=== PATIENT | female | born 1940 | race Caucasian/White ===

== ENCOUNTER 2017-04-13 07:22 | Inpatient (IN) ==
[2017-04-13] MEDS ORDERED: 0.9 % Sodium Chloride 1,000 ML IVC ONE (08:21)
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
[2017-04-13 08:49] LABS: Basophils # 0.1 K/mcL (0.0-0.2); Basophils % 0.8 %; Eosinophils # 0.4 K/mcL (0.0-0.6); Eosinophils % 3.1 %; Hematocrit 32.6 % (35.3-44.9); Hemoglobin 9.6 g/dL (11.5-15.4); Immature Granulocytes % 0.3 % (0-4); Lymphocytes # 1.9 K/mcL (0.6-4.6); Lymphocytes % 16.6 %; Mean Corpuscular HGB Conc 29.4 g/dL (31.6-35.5); Mean Corpuscular Volume 81.5 fL (83.0-100.0); Mean Platelet Volume 9.7 fL (9.4-12.4); Monocytes # 0.8 K/mcL (0.0-1.3); Monocytes % 7.1 %; Platelet Count 445 K/mcL (140-400); Red Cell Distribution Width 22.3 % (11.5-14.5); Segmented Neutrophils % 72.1 %
[2017-04-13 08:55] LABS: Bilirubin,Urine Negative (Negative); Blood,Urine Small (Negative); Clarity,Urine Clear (Clear); Color,Urine Yellow (Yellow); Glucose,Urine (UA) Normal (Normal); Ketones,Urine Negative (Negative); Leukocyte Esterase,Urine Trace (Negative); Nitrite,Urine Positive (Negative); PH,Urine 5.5 pH Units (5.0-8.0); Protein,Urine 30 mg/dL (Neg-Trace); Urobilinogen,Urine Normal (Normal)
[2017-04-13 09:04] LABS: Bacteria,Urine Many per hpf (None-Few); Hyaline Casts,Urine None Seen per lpf (None-Few); RBC,Urine 0-3 per hpf (0-3); Squamous Epithelial Cell,Urine Few per lpf (None-Few); WBC,Urine 0-3 per hpf (0-3)
[2017-04-13 09:05] LABS: Amphetamine Screen,Urine Negative ng/mL (Cutoff=1000); Barbiturate Screen,Urine Negative ng/mL (Cutoff=200); Benzodiazepines Screen,Urine Negative ng/mL (Cutoff=200); Cannabinoid Screen,Urine Negative ng/mL (Cutoff = 50); Cocaine Screen,Urine Negative ng/mL (Cutoff= 300); Opiate Screen,Urine Negative ng/mL (Cutoff=300); Phencyclidine Screen,Urine Negative ng/mL (Cutoff=25)
[2017-04-13] MEDS ORDERED: *HR* LORazepam 2 MG/ML VIAL IVP ONE ×2 (09:21→10:58)
[2017-04-13] MEDS ORDERED: Ipratropium/Albuterol Neb 3 ML IH ONE (09:38)
[2017-04-13] MEDS: Nitroglycerin 0.4 MG TAB.SUBL SL STA ×2 (09:44→09:55)
[2017-04-13] MEDS ORDERED: Nitroglycerin 25 MG/250 ML INFUS..BTL IVC SCH (10:00)
[2017-04-13 10:21] LABS: Alanine Aminotransferase 25 Units/L (0-55); Albumin 3.2 g/dL (3.5-5.0); Albumin/Globulin Ratio 0.9 (1.1-2.2); Alkaline Phosphatase 81 Units/L (38-126); Aspartate Amino Transferase 27 Units/L (5-34); BUN/Creatinine Ratio 25 (6-26); Bilirubin,Total 0.3 mg/dL (0.2-1.2); Blood Urea Nitrogen 23 mg/dL (7-20); Calcium 8.7 mg/dL (8.6-10.8); Carbon Dioxide 18 mEq/L (19-29); Chloride 111 mEq/L (98-109); Globulin 3.7 g/dL (2.4-3.5); Glucose 112 mg/dL (70-99); Lipase 37 Units/L (8-78); Osmolality,Calculated 294 (280-300); Potassium 3.8 mEq/L (3.5-4.5); Sodium 140 mEq/L (136-145); Total Protein 6.9 g/dL (6.0-8.3); eGFR For African Americans > 60 (> 60); eGFR For Non-African Americans 59 (> 60)
[2017-04-13] MEDS ORDERED: Furosemide 40 MG/4 ML VIAL IVP ONE (12:08)
[2017-04-13] MEDS ORDERED: Naloxone 0.4 MG/ML INJ IVP PRN (12:37)
[2017-04-13] MEDS ORDERED: Ondansetron ODT 4 MG TAB.RAPDIS SL PRN (12:37)
[2017-04-13] MEDS ORDERED: Acetaminophen 325 MG TABLET PO PRN (12:37)
--- NOTE | 2017-04-13 12:48 | Internal Med History&Physical ---
Date of Encounter: 04/13/17 Time of Encounter: 12:50 Assessment and Plan (1) Altered mental status Current visit: Yes Status: Acute Patient brought to the emergency room by friend who noted increased confusion over the last several days. Patient unable to answer questions appropriately on my assessment. CT of the head negative for any acute intracranial abnormality. Patient's UA consistent with infection, and may be source of confusion. Will treat UTI, and monitor for improvement in mental status. Qualifiers: Altered mental status type: disorientation Qualified Code(s): R41.0 - Disorientation, unspecified (2) Urinary tract infection Current visit: Yes Status: Acute With confusion. UA with positive leuks and nitrites consistent with infection. Mildly elevated white blood cell count at 11.2. Patient given IV Rocephin by the emergency department. We will add Levaquin. Qualifiers: Urinary tract infection type: acute cystitis Hematuria presence: without hematuria Qualified Code(s): N30.00 - Acute cystitis without hematuria (3) Congestive heart failure Current visit: Yes Status: Acute Patient with no known medical history. She takes no medications. She is a lifelong smoker and smokes 2 packs a day. She presented to the emergency department was confusion was given a liter of fluid bolus. Had acute respiratory distress and was found to have flash pulmonary edema. Chest x-ray showed suspected mild interstitial pulmonary edema, BNP was elevated at 685. She was given BiPAP, nitro drip, and 40 mg IV push Lasix with improvement in her respiratory status. We will trend troponins, get an echocardiogram. Continue nitro drip and BiPAP. Lasix 20 mg IV push twice a day. We will consult cardiology for new onset CHF. Qualifiers: Congestive heart failure type: unspecified congestive heart failure type Congestive heart failure chronicity: acute Qualified Code(s): I50.9 - Heart failure, unspecified (4) Smoker Current visit: Yes Status: Acute Patient reportedly smokes 2 packs per day. Unable to discuss smoking cessation with patient due to mental status. Routine patch ordered smoking cessation education ordered. (5) Tachycardia Current visit: Yes Status: Acute Patient with tachycardia. May be related to sepsis from UTI, but concern for PE given intermittent complaints of chest pain and shortness of breath. Elevated D-dimer of 674. Will get CTA of chest. (6) Abdominal pain Current visit: Yes Status: Acute Patient with intermittent complaints of abdominal pain. She is confused and unable to answer questions appropriately. She has visible flinch with palpation of abdomen, and abdomen is mildly distended. Will get CT of Abd/ Pelvis with IV and oral contrast. Qualifiers: Abdominal location: generalized Qualified Code(s): R10.84 - Generalized abdominal pain (7) DVT prophylaxis Current visit: Yes Status: Acute Antiembolic stockings lovenox 40mg SQ daily. Internal Medicine - H&P: HPI Chief complaint: confusion Admitted From: Emergency Dept Plans for Post Hospital Care: Home History of present illness: Ms. Wellington is a 76 year old female with no known past medical history was brought to the emergency room by her friend for increased confusion. During her time in the emergency room she intermittently complained of chest pain and abdominal pain. I was unable to obtain a review of systems due to patient's confusion as she was not answering questions appropriately. Her friend reports she was not complaining of any pain or burning with urination he does not know if she was having regular bowel movements, he does report that she was not eating much. Evaluation in the emergency department revealed a UTI consistent with infection elevated BUN. Is given a liter of fluid, and had acute respiratory distress, and flash CHF, she was started on a nitro drip and BiPAP. Her BNP was found to be 685, although there is no baseline available for comparison. She is given 40 mg of Lasix IV. Head CT showed no acute intracranial abnormality. Chest x-ray showed suspected mild interstitial pulmonary edema troponin was negative at 0.03. She had a mildly elevated white blood cell count 11.2. She was tachycardic and hypertensive initially in the emergency department. Blood pressure has come down with a nitro drip. On exam , patient is confused, satting 98% on the BiPAP, still tachypneic. She does have some mild tenderness to palpation of her abdomen. Heart is regular rate and rhythm. Past Med Surg Social Fam HX - Past Medical History Medical history: no medical history, non-contributory Psychiatric history: anxiety, depression - Social History Smoking Status: Current every day smoker (2PPD) Packs per day: 2 Smokeless Tobacco Status: No Alcohol use: rarely Drug use: none Internal Medicine - H&P: Meds No Known Home Drugs 04/13/17 [History] Allergies No Known Allergies Allergy (Verified 04/13/17 07:35) ROS unobtainable: due to mental status All Systems PM: A 10-system review of systems was performed and is negative for pertinent findings except as documented above in the HPI. - Constitutional Vitals: Temp Pulse Resp BP Pulse Ox 98.8 F 95 26 120/79 97 04/13/17 07:24 04/13/17 12:31 04/13/17 12:31 04/13/17 12:31 04/13/17 12:31 General appearance: Present: underweight. Absent: answers questions appropriately - Head Head exam: Present: atraumatic, normocephalic - Eye Eye exam: Present: PERRL, conjuntiva pink, sclera anicteric Pupils: Present: PERRL - Neck Neck exam general surgery: Present: supple, trachea midline. Absent: lymphadenopathy - Respiratory Respiratory exam: Present: rales (in bases). Absent: accessory muscle use, rhonchi, wheezes - Cardiovascular Cardiovascular exam: Present: RRR, +S1, +S2. Absent: diastolic murmur, gallop, rubs, systolic murmur - GI/Abdominal GI/Abdominal exam: Present: normal bowel sounds, soft, tenderness, no peritoneal signs. Absent: distended - Extremities Exam Extremities exam: Present: warm, radial pulses palpable and symetrical. Absent : calf tenderness, cyanotic, pedal edema - Neurological Exam Neurological exam: Present: CN II-XII intact, no focal deficits. Absent: facial droop, speech deficit - Skin Skin exam: Present: dry, intact Internal Med - H&P Results - Labs CBC & Chem 7: 04/13/17 08:36 04/13/17 08:36 Labs: All Lab Results (24 Hours) 04/13/17 04/13/17 04/13/17 Range/Units 07:57 08:10 08:36 WBC 11.2 H (4.3-11.1) K/mcL RBC 4.00 (3.82-4.97) M/mcL Hgb 9.6 L (11.5-15.4) g/dL Hct 32.6 L (35.3-44.9) % MCV 81.5 L (83.0-100.0) fL MCH 24.0 L (28.0-33.3) pg MCHC 29.4 L (31.6-35.5) g/dL RDW 22.3 H (11.5-14.5) % Plt Count 445 H (140-400) K/mcL MPV 9.7 (9.4-12.4) fL Immature Gran % 0.3 (0-4) % Seg Neutrophils % 72.1 % Lymphocytes % 16.6 % Monocytes % 7.1 % Eosinophils % 3.1 % Basophils % 0.8 % Neutrophils # 8.0 (1.6-8.9) K/mcL Lymphocytes # 1.9 (0.6-4.6) K/mcL Monocytes # 0.8 (0.0-1.3) K/mcL Eosinophils # 0.4 (0.0-0.6) K/mcL Basophils # 0.1 (0.0-0.2) K/mcL D-Dimer (0-500) ng/mLFEU Sodium (136-145) mEq/L Potassium (3.5-4.5) mEq/L Chloride (98-109) mEq/L Carbon Dioxide (19-29) mEq/L BUN (7-20) mg/dL Creatinine (0.57-1.11) mg/dL Est GFR ( Amer) (> 60) Est GFR (Non-Af Amer) (> 60) BUN/Creatinine Ratio (6-26) Glucose (70-99) mg/dL POC Glucose 116 H (58-89) Calculated Osmolality (280-300) Lactic Acid (0.5-2.2) mmol/L Calcium (8.6-10.8) mg/dL Total Bilirubin (0.2-1.2) mg/dL AST (5-34) Units/L ALT (0-55) Units/L Alkaline Phosphatase (38-126) Units/L Troponin I (0-0.03) ng/mL B-Natriuretic Peptide (0-100) pg/mL Serum Total Protein (6.0-8.3) g/dL Albumin (3.5-5.0) g/dL Globulin (2.4-3.5) g/dL Albumin/Globulin Ratio (1.1-2.2) Lipase (8-78) Units/L Urine Color (Yellow) Urine Clarity (Clear) Urine pH (5.0-8.0) pH Units Ur Specific Sherman (1.010-1.025) Urine Protein (Neg-Trace) mg/dL Urine Glucose (UA) (Normal) mg/dL Urine Ketones (Negative) mg/dL Urine Blood (Negative) Urine Nitrite (Negative) Urine Bilirubin (Negative) Urine Urobilinogen (Normal) mg/dL Ur Leukocyte Esterase (Negative) Urine Microscopic RBC (0-3) per hpf Urine Microscopic WBC (0-3) per hpf Ur Squamous Epith Cells (None-Few) per lpf Urine Bacteria (None-Few) per hpf Hyaline Casts (None-Few) per lpf Ur Culture Indicated? (NO) Urine Opiates Screen Negative (Zxfoci=934) ng/mL Ur Barbiturates Screen Negative (Lrcbqb=706) ng/mL Ur Phencyclidine Scrn Negative (Cutoff=25) ng/mL Ur Amphetamines Screen Negative (Cgrfjf=6868) ng/mL U Benzodiazepines Scrn Negative (Ntzjyp=263) ng/mL Urine Cocaine Screen Negative (Cutoff= 300) ng/mL U Marijuana (THC) Screen Negative (Cutoff = 50) ng/mL 04/13/17 04/13/17 04/13/17 Range/Units 08:36 08:36 08:36 WBC (4.3-11.1) K/mcL RBC (3.82-4.97) M/mcL Hgb (11.5-15.4) g/dL Hct (35.3-44.9) % MCV (83.0-100.0) fL MCH (28.0-33.3) pg MCHC (31.6-35.5) g/dL RDW (11.5-14.5) % Plt Count (140-400) K/mcL MPV (9.4-12.4) fL Immature Gran % (0-4) % Seg Neutrophils % % Lymphocytes % % Monocytes % % Eosinophils % % Basophils % % Neutrophils # (1.6-8.9) K/mcL Lymphocytes # (0.6-4.6) K/mcL Monocytes # (0.0-1.3) K/mcL Eosinophils # (0.0-0.6) K/mcL Basophils # (0.0-0.2) K/mcL D-Dimer 674 H (0-500) ng/mLFEU Sodium 140 (136-145) mEq/L Potassium 3.8 (3.5-4.5) mEq/L Chloride 111 H (98-109) mEq/L Carbon Dioxide 18 L (19-29) mEq/L BUN 23 H (7-20) mg/dL Creatinine 0.92 (0.57-1.11) mg/dL Est GFR ( Amer) > 60 (> 60) Est GFR (Non-Af Amer) 59 L (> 60) BUN/Creatinine Ratio 25 (6-26) Glucose 112 H (70-99) mg/dL POC Glucose (58-89) Calculated Osmolality 294 (280-300) Lactic Acid (0.5-2.2) mmol/L Calcium 8.7 (8.6-10.8) mg/dL Total Bilirubin 0.3 (0.2-1.2) mg/dL AST 27 (5-34) Units/L ALT 25 (0-55) Units/L Alkaline Phosphatase 81 (38-126) Units/L Troponin I 0.03 (0-0.03) ng/mL B-Natriuretic Peptide (0-100) pg/mL Serum Total Protein 6.9 (6.0-8.3) g/dL Albumin 3.2 L (3.5-5.0) g/dL Globulin 3.7 H (2.4-3.5) g/dL Albumin/Globulin Ratio 0.9 L (1.1-2.2) Lipase 37 (8-78) Units/L Urine Color (Yellow) Urine Clarity (Clear) Urine pH (5.0-8.0) pH Units Ur Specific Sherman (1.010-1.025) Urine Protein (Neg-Trace) mg/dL Urine Glucose (UA) (Normal) mg/dL Urine Ketones (Negative) mg/dL Urine Blood (Negative) Urine Nitrite (Negative) Urine Bilirubin (Negative) Urine Urobilinogen (Normal) mg/dL Ur Leukocyte Esterase (Negative) Urine Microscopic RBC (0-3) per hpf Urine Microscopic WBC (0-3) per hpf Ur Squamous Epith Cells (None-Few) per lpf Urine Bacteria (None-Few) per hpf Hyaline Casts (None-Few) per lpf Ur Culture Indicated? (NO) Urine Opiates Screen (Yhaesa=223) ng/mL Ur Barbiturates Screen (Lvuoad=857) ng/mL Ur Phencyclidine Scrn (Cutoff=25) ng/mL Ur Amphetamines Screen (Lvjfao=7700) ng/mL U Benzodiazepines Scrn (Vnrksc=780) ng/mL Urine Cocaine Screen (Cutoff= 300) ng/mL U Marijuana (THC) Screen (Cutoff = 50) ng/mL 04/13/17 04/13/17 04/13/17 Range/Units 08:36 08:45 12:09 WBC (4.3-11.1) K/mcL RBC (3.82-4.97) M/mcL Hgb (11.5-15.4) g/dL Hct (35.3-44.9) % MCV (83.0-100.0) fL MCH (28.0-33.3) pg MCHC (31.6-35.5) g/dL RDW (11.5-14.5) % Plt Count (140-400) K/mcL MPV (9.4-12.4) fL Immature Gran % (0-4) % Seg Neutrophils % % Lymphocytes % % Monocytes % % Eosinophils % % Basophils % % Neutrophils # (1.6-8.9) K/mcL Lymphocytes # (0.6-4.6) K/mcL Monocytes # (0.0-1.3) K/mcL Eosinophils # (0.0-0.6) K/mcL Basophils # (0.0-0.2) K/mcL D-Dimer (0-500) ng/mLFEU Sodium (136-145) mEq/L Potassium (3.5-4.5) mEq/L Chloride (98-109) mEq/L Carbon Dioxide (19-29) mEq/L BUN (7-20) mg/dL Creatinine (0.57-1.11) mg/dL Est GFR ( Amer) (> 60) Est GFR (Non-Af Amer) (> 60) BUN/Creatinine Ratio (6-26) Glucose (70-99) mg/dL POC Glucose (58-89) Calculated Osmolality (280-300) Lactic Acid 1.0 (0.5-2.2) mmol/L Calcium (8.6-10.8) mg/dL Total Bilirubin (0.2-1.2) mg/dL AST (5-34) Units/L ALT (0-55) Units/L Alkaline Phosphatase (38-126) Units/L Troponin I (0-0.03) ng/mL B-Natriuretic Peptide 685 H (0-100) pg/mL Serum Total Protein (6.0-8.3) g/dL Albumin (3.5-5.0) g/dL Globulin (2.4-3.5) g/dL Albumin/Globulin Ratio (1.1-2.2) Lipase (8-78) Units/L Urine Color Yellow (Yellow) Urine Clarity Clear (Clear) Urine pH 5.5 (5.0-8.0) pH Units Ur Specific Sherman 1.020 (1.010-1.025) Urine Protein 30 H (Neg-Trace) mg/dL Urine Glucose (UA) Normal (Normal) mg/dL Urine Ketones Negative (Negative) mg/dL Urine Blood Small H (Negative) Urine Nitrite Positive A (Negative) Urine Bilirubin Negative (Negative) Urine Urobilinogen Normal (Normal) mg/dL Ur Leukocyte Esterase Trace H (Negative) Urine Microscopic RBC 0-3 (0-3) per hpf Urine Microscopic WBC 0-3 (0-3) per hpf Ur Squamous Epith Cells Few (None-Few) per lpf Urine Bacteria Many H (None-Few) per hpf Hyaline Casts None Seen (None-Few) per lpf Ur Culture Indicated? YES A (NO) Urine Opiates Screen (Bmfjrm=238) ng/mL Ur Barbiturates Screen (Vlqqeh=354) ng/mL Ur Phencyclidine Scrn (Cutoff=25) ng/mL Ur Amphetamines Screen (Dmrcrn=3114) ng/mL U Benzodiazepines Scrn (Idktvw=312) ng/mL Urine Cocaine Screen (Cutoff= 300) ng/mL U Marijuana (THC) Screen (Cutoff = 50) ng/mL - Diagnostic Studies Chest x-ray Additional comments: Chest X-Ray 04/13/17 08:21 IMPRESSION: Suspected mild interstitial pulmonary edema. D/ /13/2017 08:47:39 Dustin Antony MD / bcartally Interpreting Provider: Dustin Antony MD CT scan - head Additional comments: Head CT 04/13/17 08:21 IMPRESSION: No acute intracranial abnormality. Mild parenchymal volume loss. Mild chronic microvascular disease. D/ / Luis Greene MD / Luis Greene MD Interpreting Provider: Luis Greene MD
[2017-04-13] MEDS ORDERED: Levofloxacin 750 MG/150 ML 750 MG/150 ML BAG IVPB SCH (13:00)
[2017-04-13 13:50] LABS: ABG Base Excess -1.6 mEq/L (-2.0 to 3.0); ABG HCO3 22.8 mEQ/L (21-27); ABG Oxygen Saturation 98 % (95-98); ABG PCO2 36 mmHg (35-45); ABG PH 7.41 pH Units (7.32-7.45); ABG PO2 107 mmHg (85-104); ABG TCO2 23.9 mEq/L (20-26)
[2017-04-13 13:51] LABS: Blood Gas FiO2 35 %
[2017-04-13] MEDS: Nicotine 21 MG PATCH.TD24 TD SCH (14:00)
--- NOTE | 2017-04-13 14:17 | Event Note ---
Date of Encounter: 04/13/17 Time of Encounter: 14:13 Patient seen and examined with nurse practitioner. Patient presented to the emergency room with confusion. Suspected toxic metabolic encephalopathy. It is theology not very clear questionable UTI and she will be started on Levaquin for that. She is also a lifelong smoker and has some yellowish sputum production but no evidence of pneumonia on chest x-ray. Widen the ER patient went into flash pulmonary edema after 1 L bolus of normal saline was given. She was placed on BiPAP and IV nitroglycerin and 40 mg IV Lasix were given. Patient remains confused during my interview. Suspected underlying sepsis. abdomen slightly distended and tender. We will get CT scan of the abdomen with oral and IV contrast to look for intra-abdominal pathology. D Darrick also elevated and we will simultaneously scan the chest to rule out PE. EEG would be performed. CT scan of the head did not show any intracranial bleed. She denies any neck pain. Her neck is supple, negative Kernig's and Br[place] sign. During my interview BP was 90/60. Discontinued nitroglycerin. Avoid BP drops. Prognosis guarded
--- NOTE | 2017-04-13 15:44 | Cardiology Consult Note ---
Date of Encounter: 04/13/17 Time of Encounter: 15:40 Assessment and Plan (1) Pulmonary edema Current Visit: Yes Status: Acute Patient developed pulmonary edema after IV fluid bolus. Denies history of CAD or CHF. BNP 685. Check echocardiogram. Qualifiers: Chronicity: acute Qualified Code(s): J81.0 - Acute pulmonary edema (2) Elevated troponin Current Visit: Yes Status: Acute Mild troponin elevation at 0.07. Likely demand ischemia in the setting of pulmonary edema. Continue to trend. Check TTE. Confused but reported chest pain 1-2 days ago. Denies chest pain at this time. Consider Stress test vs C once stable. Risk factors of CAD: heavy smoking and family history. (3) Carotid artery disease Current Visit: Yes Status: Acute CUS in 2012 showed 60-79% stenosis in 2012. Smoking cessation. Pt currently confused, unable to discuss. Qualifiers: Laterality: right Qualified Code(s): I77.9 - Disorder of arteries and arterioles, unspecified Discussion w patient/family: The assessment and plan as outlined above was discussed with the patient and/or family members who expressed understanding and agreement. All questions were answered. Thank you for involving us in the care of your patient. Please call with any questions. History of Present Illness Consult date: 04/13/17 Requesting physician: Wilfred Hancock Consult reason: CHF Chief complaint: Confusion History of present illness: Ms. Wellington is a 76 year old female who presented from home with confusion. WHile being treated with IV fluid in the ER she developed flash pulmonary edema and required IV lasix, NTG gtt, and bipap. CXR showed mild interstitial edema likely pulmonary edema. Cardiology consulted for possible CHF and mild troponin elevation at 0.07. BNP 685. No previous history of CAD or CHF. No previous cardiac work-up. On my exam she remains confused and has trouble answering questions. She does c/o chest pain prior to admission and increasing SOB with exertion. She c/o congestion in her nose. She has a history of COPD, heavy tobacco use, and carotid artery disease. Past Med Surg Social Fam HX - Past Medical History Medical history: COPD, other (carotid artery disease) Psychiatric history: anxiety, depression - Social History Smoking Status: Current every day smoker (2PPD) Packs per day: 2 Smokeless Tobacco Status: No Alcohol use: rarely Drug use: none Medications and Allergies No Known Home Drugs 05/18/17 [History] Allergies No Known Allergies Allergy (Verified 04/13/17 07:35) All Systems Review: A 10-system review of systems was performed and is negative for pertinent findings except as documented above in the HPI. Physical Examination Vital Signs, Last 4 Hours Temp Pulse Resp BP Pulse Ox 04/13/17 13:10 98.4 F 87 14 105/67 93 General: Other (mumbles, MENTASTA, confused.) HEENT: Atraumatic, Normocephaly, Mucus Membranes Moist Neck: No JVD, Normal carotid pulses Cardiac: Reg Rate and Rhythm, Normal S1 and S2, No Murmur Lungs: Other (Expiratory wheezes scattered throughout. ) Neuro: Alert and responsive, No focal deficits noted Abdomen: Soft, Non-Tender Skin: No rashes noted on visualized skin Musculoskeletal: No Chest Wall Tenderness Extremities: No Clubbing, No Cyanosis, No Edema, Normal Pulses Results 04/13/17 08:36 04/13/17 08:36 Lab Results 04/13/17 04/13/17 14:00 14:00 Magnesium 1.9 Troponin I 0.07 H* - Imaging and Cardiology Echo: pending - EKG Interpretation EKG results cardiology: personally reviewed (ST, no acute ST changes.) Consult Discharge Plan - Plan Referrals: NO,PCP [Primary Care Provider] -
--- NOTE | 2017-04-13 19:02 | Event Note ---
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 Patient is NPO. Consult to surgery ordered, spoke with Dr. Spear, he will see patient in the morning. Consult to GI ordered as well.
[2017-04-13] MEDS: Furosemide 20 MG/2 ML VIAL IVP SCH (22:03)
[2017-04-14] MEDS: MetroNIDAZOLE 500 MG/100 ML 500 MG/100 ML BAG IVPB SCH ×2 (01:04→10:56)
[2017-04-14 05:58] LABS: Basophils # 0.1 K/mcL (0.0-0.2); Basophils % 0.9 %; Eosinophils # 0.3 K/mcL (0.0-0.6); Eosinophils % 2.7 %; Hematocrit 32.6 % (35.3-44.9); Hemoglobin 9.9 g/dL (11.5-15.4); Immature Granulocytes % 0.3 % (0-4); Lymphocytes # 2.2 K/mcL (0.6-4.6); Lymphocytes % 23.2 %; Mean Corpuscular HGB Conc 30.4 g/dL (31.6-35.5); Mean Corpuscular Hemoglobin 24.8 pg (28.0-33.3); Mean Corpuscular Volume 81.5 fL (83.0-100.0); Mean Platelet Volume 10.1 fL (9.4-12.4); Monocytes # 1.1 K/mcL (0.0-1.3); Monocytes % 11.5 %; Neutrophils # 5.8 K/mcL (1.6-8.9); Platelet Count 434 K/mcL (140-400); Red Cell Distribution Width 21.8 % (11.5-14.5); Segmented Neutrophils % 61.4 %
[2017-04-14] MEDS ORDERED: *HR* Enoxaparin 40 MG/0.4 ML SYRINGE SQ SCH (06:00)
[2017-04-14 06:06] LABS: Calcium 9.1 mg/dL (8.6-10.8); Chol/HDL Ratio 4.7 (0-4.9); Potassium 3.9 mEq/L (3.5-4.5)
--- NOTE | 2017-04-14 08:54 | Electrocardiograph Report ---
[place] [id number] Test Date: 2017-04-13 Pat Name: Dennise Wellington Department: 105 Room: [id number] Gender: F Log Scaler: KARLA : 1940 Requested By: Ailin Leahy Order Number: [id number] Reading MD: Enrico Bush MD Measurements Intervals [place] Rate: 110 P: 59 [place]: 176 QRS: 3 QRSD: 82 T: 77 QT: 341 QTc: 406 Interpretive Statements SINUS TACHYCARDIA LEFT ATRIAL ENLARGEMENT Electronically Signed On 04-14-2017 8:52:43 EDT by Enrico Bush MD
--- NOTE | 2017-04-14 10:22 | Internal Med Progress Note ---
<Jacqueline Marques - Last Filed: 04/14/17 14:46> Date of Encounter: 04/14/17 Time of Encounter: 09:15 - Assessment and plan (1) Acute systolic CHF (congestive heart failure) Current Visit: Yes Status: Acute Assessment and plan: - Patient developed flash pulmonary edema in ED after 1L of IV NS bolus. Respiratory status improves after IV Lasix. - Echo on 04/14/17 found LVEF 25% with severe global LV systolic dysfunction and mild diastolic dysfunction. - Cardiology recommends LHC to rule out ischemic cause. LHC consent was obtained on the phone from patient's incarcerated son. Plan to have LHC later today. - Patient appears to be dry at this time. Will discontinue IV Lasix. - Continue to monitor with strict I&O and daily weight. (2) Cecum mass Current Visit: Yes Status: Acute Assessment and plan: - CT A/P found a partially circumferential cecal mass measuring 3.1 x 3.4 x 3.7 cm, likely a primary colon cancer. - Per Dr. Spear, patient will likely need right hemicolectomy as it can potentially cause obstruction but that surgery will be after patient's other current medical problems (systolic CHF and UTI) are taken care of. (3) Urinary tract infection Current Visit: Yes Status: Acute Assessment and plan: - Urine culture preliminarily grew GNR, further identification and sensitivity pending. - May partially contribute to her current confusion. - Improves as WBC decreased from 11.2 to 9.5. - Continue IV levofloxacin. Qualifiers: Urinary tract infection type: acute cystitis Hematuria presence: without hematuria Qualified Code(s): N30.00 - Acute cystitis without hematuria (4) Elevated troponin Current Visit: Yes Status: Acute Assessment and plan: - Elevated troponin (0.03, 0.07, 0.06). - Likely demand ischemia in the setting of acute CHF per cardiology. - Cardiology plans to have LHC today. (5) Poor short term memory Current Visit: Yes Status: Acute Assessment and plan: - Patient seems to have difficulty to register and recognize topics discussed with her as she will repeat exactly same problems again and again during conversation. (6) Tobacco abuse Current Visit: Yes Status: Acute Assessment and plan: - Patient is instructed not to smoke in hospital. - Continue nicotine patch. - Subjective Interval history: Patient was caught smoking in the room this morning. Patient was seen and examined this morning. Patient reports breathing much better compared to yesterday and states she has no pain and wonders if she can go home. Patient denies fever, chills, nausea, vomiting, diarrhea, abdominal pain, difficulty urinating, dysuria or hematuria. - Constitutional Vitals: Temp Pulse Resp BP Pulse Ox 98.2 F 105 16 130/81 96 04/14/17 07:56 04/14/17 07:56 04/14/17 07:56 04/14/17 07:56 04/14/17 07:56 General appearance: Present: A&O X 2 (Person and place, patient first says it's 2016. ), no acute distress, underweight. Absent: answers questions appropriately - Head Head exam: Present: atraumatic, normocephalic - Eye Eye exam: Present: EOMI, PERRL, conjuntiva pink, sclera anicteric - Neck Neck exam general surgery: Present: supple, trachea midline. Absent: lymphadenopathy - Respiratory Respiratory exam: Present: CTAB. Absent: accessory muscle use, rales, rhonchi, wheezes - Cardiovascular Cardiovascular exam: Present: +S1, +S2, tachycardia. Absent: diastolic murmur, gallop, rubs, systolic murmur - GI/Abdominal GI/Abdominal exam: Present: normal bowel sounds, soft, no peritoneal signs. Absent: distended, tenderness - Extremities Exam Extremities exam: Present: warm, radial pulses palpable and symetrical. Absent : calf tenderness, cyanotic, pedal edema - Neurological Exam Neurological exam: Present: CN II-XII intact, no focal deficits. Absent: pronater drift, facial droop, speech deficit - Skin Skin exam: Present: dry, intact, warm Internal Medicine: Result - Labs CBC & Chem 7: 04/14/17 05:18 04/14/17 05:18 Labs: Short CBC 04/14/17 Range/Units 05:18 WBC 9.5 (4.3-11.1) K/mcL Hgb 9.9 L (11.5-15.4) g/dL Hct 32.6 L (35.3-44.9) % Plt Count 434 H (140-400) K/mcL Neutrophils # 5.8 (1.6-8.9) K/mcL BMP 04/14/17 05:18 Sodium 141 Potassium 3.9 Chloride 104 Carbon Dioxide 26 BUN 20 Creatinine 1.16 H Glucose 78 Calcium 9.1 Cardiac Enzymes 04/13/17 04/13/17 Range/Units 14:00 21:58 Troponin I 0.07 H* 0.06 H* (0-0.03) ng/mL - ABG Interpretation ABG results: ABG ABG pH 7.41 pH Units (7.32-7.45) 04/13/17 13:40 ABG pCO2 36 mmHg (35-45) 04/13/17 13:40 ABG pO2 107 mmHg (85-104) H 04/13/17 13:40 ABG O2 Saturation 98 % (95-98) 04/13/17 13:40 PT/INR, D-dimer D-Dimer 674 ng/mLFEU (0-500) H 04/13/17 08:36 - Impressions Impressions Abdomen/Pelvis CT 04/13/17 16:30 IMPRESSION: No pulmonary emboli. There is a partially circumferential cecal mass measuring 3.1 x 3.4 x 3.7 cm felt likely to represent a primary colon cancer. This could be assessed with colonoscopy. This is causing a partial obstruction with distention of the cecum, and mild probable pericolonic edema or less likely inflammatory stranding adjacent to the mass. Bilateral adrenal nodules, unable to be characterized based on this single contrast enhanced study. Given the presence of a colonic mass, a consideration would be metastatic disease. However they are somewhat low in density, and may also represent benign adenomas. Further evaluation with MR or CT adrenal gland protocol imaging or possible PET imaging studies may be beneficial for the purposes of staging. Cardiomegaly, with small bilateral pleural effusions, as well as findings suspicious for mild pulmonary edema. There is a small hypodense lesion identified within the liver measuring 6 Hounsfield units and 7 mm. This likely represents a small cyst, and is felt less likely to represent metastatic disease. Diffuse osseous demineralization, with multilevel degenerative changes seen throughout the spine as well as within the sacroiliac joints. D/ / Dustin Yousif MD / Dustin Yousif MD Interpreting Provider: Dustin Yousif MD Chest CTA 04/13/17 16:30 IMPRESSION: No pulmonary emboli. There is a partially circumferential cecal mass measuring 3.1 x 3.4 x 3.7 cm felt likely to represent a primary colon cancer. This could be assessed with colonoscopy. This is causing a partial obstruction with distention of the cecum, and mild probable pericolonic edema or less likely inflammatory stranding adjacent to the mass. Bilateral adrenal nodules, unable to be characterized based on this single contrast enhanced study. Given the presence of a colonic mass, a consideration would be metastatic disease. However they are somewhat low in density, and may also represent benign adenomas. Further evaluation with MR or CT adrenal gland protocol imaging or possible PET imaging studies may be beneficial for the purposes of staging. Cardiomegaly, with small bilateral pleural effusions, as well as findings suspicious for mild pulmonary edema. There is a small hypodense lesion identified within the liver measuring 6 Hounsfield units and 7 mm. This likely represents a small cyst, and is felt less likely to represent metastatic disease. Diffuse osseous demineralization, with multilevel degenerative changes seen throughout the spine as well as within the sacroiliac joints. D/ / Dustin Yousif MD / Dustin Yousif MD Interpreting Provider: Dustin Yousif MD - VTE Documentation of Mechanical Device: Intermittent pneumatic compression device Consult Discharge Plan - Plan Referrals: NO,PCP [Primary Care Provider] - <Tan Apodaca - Last Filed: 04/14/17 16:32> Date of Encounter: 04/14/17 - Assessment and plan (1) Acute systolic CHF (congestive heart failure) Current Visit: Yes Status: Acute (2) Pulmonary edema Current Visit: Yes Status: Resolved Qualifiers: Chronicity: acute Qualified Code(s): J81.0 - Acute pulmonary edema (3) Carotid artery disease Current Visit: Yes Status: Chronic Qualifiers: Laterality: right Qualified Code(s): I77.9 - Disorder of arteries and arterioles, unspecified (4) Urinary tract infection Current Visit: Yes Status: Acute Qualifiers: Urinary tract infection type: acute cystitis Hematuria presence: without hematuria Qualified Code(s): N30.00 - Acute cystitis without hematuria (5) Poor short term memory Current Visit: Yes Status: Acute (6) Cecum mass Current Visit: Yes Status: Acute (7) Tobacco abuse Current Visit: Yes Status: Acute (8) Moderate protein-calorie malnutrition Current Visit: Yes Status: Chronic - Constitutional Vitals: Temp Pulse Resp BP Pulse Ox 99 F 99 16 88/71 100 04/14/17 15:46 04/14/17 15:46 04/14/17 15:46 04/14/17 15:46 04/14/17 15:46 Internal Medicine: Result - Labs CBC & Chem 7: 04/14/17 05:18 04/14/17 05:18 Labs: Short CBC 04/14/17 Range/Units 05:18 WBC 9.5 (4.3-11.1) K/mcL Hgb 9.9 L (11.5-15.4) g/dL Hct 32.6 L (35.3-44.9) % Plt Count 434 H (140-400) K/mcL Neutrophils # 5.8 (1.6-8.9) K/mcL BMP 04/14/17 05:18 Sodium 141 Potassium 3.9 Chloride 104 Carbon Dioxide 26 BUN 20 Creatinine 1.16 H Glucose 78 Calcium 9.1 Cardiac Enzymes 04/13/17 Range/Units 21:58 Troponin I 0.06 H* (0-0.03) ng/mL - ABG Interpretation ABG results: ABG ABG pH 7.41 pH Units (7.32-7.45) 04/13/17 13:40 ABG pCO2 36 mmHg (35-45) 04/13/17 13:40 ABG pO2 107 mmHg (85-104) H 04/13/17 13:40 ABG O2 Saturation 98 % (95-98) 04/13/17 13:40 PT/INR, D-dimer PT 11.9 Seconds (9.4-12.1) 04/14/17 14:57 D-Dimer 674 ng/mLFEU (0-500) H 04/13/17 08:36 - Impressions Impressions Abdomen/Pelvis CT 04/13/17 16:30 IMPRESSION: No pulmonary emboli. There is a partially circumferential cecal mass measuring 3.1 x 3.4 x 3.7 cm felt likely to represent a primary colon cancer. This could be assessed with colonoscopy. This is causing a partial obstruction with distention of the cecum, and mild probable pericolonic edema or less likely inflammatory stranding adjacent to the mass. Bilateral adrenal nodules, unable to be characterized based on this single contrast enhanced study. Given the presence of a colonic mass, a consideration would be metastatic disease. However they are somewhat low in density, and may also represent benign adenomas. Further evaluation with MR or CT adrenal gland protocol imaging or possible PET imaging studies may be beneficial for the purposes of staging. Cardiomegaly, with small bilateral pleural effusions, as well as findings suspicious for mild pulmonary edema. There is a small hypodense lesion identified within the liver measuring 6 Hounsfield units and 7 mm. This likely represents a small cyst, and is felt less likely to represent metastatic disease. Diffuse osseous demineralization, with multilevel degenerative changes seen throughout the spine as well as within the sacroiliac joints. D/ / Dustin Yousif MD / Dustin Yousif MD Interpreting Provider: Dustin Yousif MD Chest CTA 04/13/17 16:30 IMPRESSION: No pulmonary emboli. There is a partially circumferential cecal mass measuring 3.1 x 3.4 x 3.7 cm felt likely to represent a primary colon cancer. This could be assessed with colonoscopy. This is causing a partial obstruction with distention of the cecum, and mild probable pericolonic edema or less likely inflammatory stranding adjacent to the mass. Bilateral adrenal nodules, unable to be characterized based on this single contrast enhanced study. Given the presence of a colonic mass, a consideration would be metastatic disease. However they are somewhat low in density, and may also represent benign adenomas. Further evaluation with MR or CT adrenal gland protocol imaging or possible PET imaging studies may be beneficial for the purposes of staging. Cardiomegaly, with small bilateral pleural effusions, as well as findings suspicious for mild pulmonary edema. There is a small hypodense lesion identified within the liver measuring 6 Hounsfield units and 7 mm. This likely represents a small cyst, and is felt less likely to represent metastatic disease. Diffuse osseous demineralization, with multilevel degenerative changes seen throughout the spine as well as within the sacroiliac joints. D/ / Dustin Yousif MD / Dustin Yousif MD Interpreting Provider: Dustin Yousif MD - Attending Attestation I examined this patient and my medical decision-making was reviewed with the Resident Physician on 04/14/17. I agree with the documented findings, disposition and treatment plan as described except to the extent set forth below. Ms. Wellington is currently admitted for acute pulmonary edema and acute on chronic systolic heart failure. She is moderate to high risk due to potential for worsening cardiac and respiratory status. Ms. Wellington is sitting in bed. She is repetitive in her questions and does not appear to remember anything said. She denies CP. No dyspnea now. No fever or chills. Fiance at bedside and is helping her. Exam Alert. Comfortable Very poor short term memory Heart reg No wheeze I/P 1. Pulmonary edema 2. CHF Further diagnoses and plan as above.
--- NOTE | 2017-04-14 10:23 | ECHO - Doppler Report ---
Echocardiogram Name: Dennise Wellington Date of Study: 04/13/2017 Date: 1940 Ht: 64.0 in Medical Record#: [id number] Age: 76 Wt: 93.0 lb Gender: Female BSA: 1.41 Order #: [id number] Location: [facility] Room #: [id number] Reading Physician: Kathleen Hansen DO Diagnostic Imaging Manager: Chelsey Kahn Ordering Physician: Elina Dominguez CNP Primary Physician: None Indications: CHF Impressions: LVEF 25%. Severe global LV systolic dysfunction. Normal LV size by dimension but visually appears mildly dilated. There is evidence of mild diastolic dysfunction of the left ventricle. No LV thrombus on views imaged. Normal right ventricular size and function. Mild mitral regurgitation. No pulmonary hypertension. Left Ventricular Wall Motion: Rest Echo Findings The apex, apical inferior, mid inferior, basal inferior, apical anterior, mid anterior, basal anterior, apical septal, mid inferior septal, basal inferior septal, apical lateral, mid anterior lateral, basal anterior lateral, mid anterior septal, mid inferior lateral, basal anterior septal and basal inferior lateral galloway were hypokinetic. Findings: Study Quality * Technically adequate exam. ECG Findings * Normal sinus rhythm. Left Ventricle * Mild left ventricular diastolic dysfunction. * LVEF 25%. * Normal LV size by dimensions. Aortic Valve * No aortic regurgitation. * Aortic valve not well visualized. * No aortic stenosis. Mitral Valve * Mild mitral regurgitation. * Mildly calcified and thickened. * No mitral stenosis. Tricuspid Valve * Tricuspid valve not well visualized. * No tricuspid regurgitation. * Estimated RA pressure is 3 mmHg. Pulmonic Valve * Pulmonic valve is not well visualized. * No pulmonic stenosis. * No pulmonic regurgitation. Pulmonary Artery * Pulmonary artery not well visualized. Left Atrium * Severely dilated left atrium. Right Ventricle * Normal right ventricular structure and function. Right Atrium * Normal right atrial size. Interatrial Septum * No evidence of PFO by color Doppler. IVC * Normal IVC dimensions and inspiratory collapse. Pericardium * There is no pericardial effusion present. Aorta * Suboptimally visualized. History Measurements: BP: 105/ 67 2D Normal Values RVIDd: 2.30 cm <2.7 cm IVSd: .90 cm 0.6 - 1.0 cm LVIDd: 4.60 cm 3.7 - 5.6 cm LVPWd: .80 cm 0.6 - 1.1 cm LVIDs: 4.00 cm 1.5 - 3.6 cm AO: 1.90 cm < 4.0 cm LA: 3.10 cm 2.0 - 4.0cm %FS: 13.00 cm >25 % LVOT Diam: 2.00 cm LA volume: 24 Mitral Valve Peak E:.76 m/sec Peak A:.77 m/sec E/A Ratio:1 Peak E' Lat Kurt:7.8 cm/s Peak E' Med Kurt:5.46 cm/s E/E' Lat Ratio:9.7 E/E' Med Ratio:13.9 Updated by Kathleen Hansen on 04/14/2017 10:13:59 AM electronically signed on 04/14/2017 10:16:31 AM with status of Final Wall Motion Norris: 1=Normal, 2=Hypokinesis, 3=Akinesis, 4=Dyskinesis, 5=Aneurysmal, 6=Hyperkinetic, X=Not Visualized (Blank)=Missing
[2017-04-14] MEDS: Nicotine 21 MG PATCH.TD24 TD SCH (10:56)
[2017-04-14] MEDS: Furosemide 20 MG/2 ML VIAL IVP SCH (10:57)
--- NOTE | 2017-04-14 12:33 | Cardiology Progress Note ---
Date of Encounter: 04/14/17 Time of Encounter: 12:29 Assessment and Plan (1) Acute systolic CHF (congestive heart failure) Current Visit: Yes Status: Acute TTE reviewed, EF 25%. No previous report to compare. Severe global systolic dysfunction. Mild diastolic dysfunction. Mild mitral regurgitation. She currently appears dry on exam. Agree with discontinuing IV Lasix. LHC recommended to r/o ischemic cause. Left heart catheterization discussed with patient and significant other. Indications, risks, benefits, and alternatives discussed. Proceeding with LHC is complicated due to patient being confused and unable to retain information. Her only significant other is a fianc. Only living son is incarcerated. He is also found to have a cecal mass on CT. She was seen by surgery and colonoscopy is deferred at this time. family service worker consult to assist in obtaining consent. (2) Elevated troponin Current Visit: Yes Status: Acute Mild troponin elevation at 0.07. Likely demand ischemia in the setting of acute CHF. Planning for LHC. (3) Carotid artery disease Current Visit: Yes Status: Acute CUS in 2011 showed 60-79% stenosis in 2011. Smoking cessation. Pt currently confused, unable to discuss. Qualifiers: Laterality: right Qualified Code(s): I77.9 - Disorder of arteries and arterioles, unspecified Discussion w patient/family: The assessment and plan as outlined above was discussed with the patient and/or family members who expressed understanding and agreement. All questions were answered. Thank you for involving us in the care of your patient. Please call with any questions. Subjective Principal diagnosis: New cardiomyoapthy, colon mass Interval history: Patient appears to have short term memory problems and is unable to retain information. Diagnosis and treatment plan reviewed multiple times with patient. She denies chest pain or SOB at this time. Significant other at bedside reports she c/o chest pain at times. Objective Vital Signs, Last 4 Hours Temp Pulse Resp BP Pulse Ox 04/14/17 11:41 98 F 97 16 85/53 98 General: Conversant, No Apparent Distress, Other (poor historian and confused. Re-oriented to time. ) HEENT: Atraumatic, Normocephaly, Mucus Membranes Moist, Other (Appears dry.) Neck: No JVD, Normal carotid pulses Cardiac: Reg Rate and Rhythm, Normal S1 and S2, No Murmur Lungs: Normal Breath Sounds, No Wheeze, Rales, Rhonchi Neuro: Alert and responsive, No focal deficits noted Abdomen: Soft, Non-Tender Skin: No rashes noted on visualized skin Musculoskeletal: No Chest Wall Tenderness Extremities: No Clubbing, No Cyanosis, No Edema, Normal Pulses Results 04/14/17 05:18 04/14/17 05:18 Lab Results 04/13/17 04/13/17 04/13/17 14:00 14:00 21:58 WBC Hgb Hct Plt Count Sodium Potassium Chloride Carbon Dioxide BUN Creatinine Glucose Calcium Magnesium 1.9 Troponin I 0.07 H* 0.06 H* 04/14/17 04/14/17 05:18 05:18 WBC 9.5 Hgb 9.9 L Hct 32.6 L Plt Count 434 H Sodium 141 Potassium 3.9 Chloride 104 Carbon Dioxide 26 BUN 20 Creatinine 1.16 H Glucose 78 Calcium 9.1 Magnesium Troponin I - Imaging and Cardiology Echo: report reviewed - VTE Documentation of Mechanical Device: Intermittent pneumatic compression device Consult Discharge Plan - Plan Referrals: NO,PCP [Primary Care Provider] -
[2017-04-14 15:48] VITALS: BP 88/71
[2017-04-14] MEDS ORDERED: Heparin 1,000 UNITS/500 mL NS 0 ML ONE (15:51)
[2017-04-14] MEDS ORDERED: *HR* Heparin 10,000 UNIT/10 ML VIAL ONE (15:51)
[2017-04-14 16:05] LABS: INR 1.1; Prothrombin Time 11.9 Seconds (9.4-12.1)
[2017-04-14 16:08] LABS: Activated Partial Thrombo Time 26.2 Seconds (26.0-36.0)
--- NOTE | 2017-04-14 17:37 | Event Note ---
Date of Encounter: 04/14/17 Time of Encounter: 15:33 - Cardiology Event Note Patient transferred to the labeling specialist holding area. Prior to C she declined procedure. Fiance at bedside and he agreed with patient. C cancelled. Pt became increasingly agitated while she was in labeling specialist holding area and was confused. . She tried to stand up and leave. Patient was then taken back to her room. Primary team notified.
--- NOTE | 2017-04-14 17:39 | Discharge Summary ---
<Jacqueline Marques - Last Filed: 04/14/17 18:30> Date of Encounter: 04/14/17 Time of Encounter: 17:15 - Discharge Diagnosis (1) Acute systolic CHF (congestive heart failure) Priority: Primary Status: Acute (2) Cecum mass Priority: Primary Status: Acute (3) Urinary tract infection Priority: Primary Status: Acute (4) Elevated troponin Priority: Secondary Status: Acute (5) Poor short term memory Priority: Secondary Status: Acute (6) Tobacco abuse Priority: Secondary Status: Acute - Discharge Medications Prescriptions: levoFLOXacin [Levofloxacin] 750 mg PO Q48H #2 tablet Home Medications: levoFLOXacin [Levofloxacin] 750 mg PO Q48H #2 tablet 04/14/17 [Rx] Allergies/Adverse Reactions: Allergies No Known Allergies Allergy (Verified 04/13/17 07:35) Procedures/tests Complete & Pending: Procedures Performed prior 72 hours Category Date Time Status CT abd pelvis w iv no oral [CT] Stat Cat Scan 04/13/17 16:[address] angio chest [CT] Stat Cat Scan 04/13/17 16:30 Completed CL Cardiac Catheterization [CL] Routine Supervisor Plastering 04/14/17 14:26 Ordered Date of admission: 04/13/17 13:03 Primary care physician: PCP NO Consults: 04/13/17 14:09 Consult to Nutrition [CONS] Routine Comment: Consulting Provider: NUTRITION Reason for Dietary Consult: MST Score Consult to Master Of Ceremonies [CONS] Routine Reason for SW Consult: discharge planning 04/13/17 14:53 Consult to Cardiology [CONS] Routine Comment: Consulting Provider: [facility] [place] Reason for Consult: New onset CHF. Call Completed: Yes 04/13/17 18:55 Consult to Surgery [CONS] Routine Consulting Provider: Surgery [facility] Bryanna Spear Reason for Consult: circumpherential cecal mass causing partial bowel obstruction Call Completed: Yes Discharging clinician: Jacqueline Marques - Patient Status Disposition: Left Against Medical Advice Condition: Good Functional capacity at discharge: independent ambulation - Discharge Instructions Instructions: Levofloxacin (By mouth), Heart Failure (DC) Follow Up With: Mo Spear MD [Non-Partnered Physician] - Nick Perez FIELD [employer]ELIN[employer] SUPERVISOR [Advanced Practice Nurse] - NO,PCP [Primary Care Provider] - - Diet and Activity Diet: other (Fluid restriction) Hospital course: Ms. Wellington is a 76 year old female with PMH of COPD and depression/anxiety. Patient was brought to [place] ED for increased altered mental status and UA suggested UTI. Patient received 1L of IV NS bolus and developed acute respiratory distress requiring BiPAP. CXR suggested pulmonary edema. Patient is admitted on 04/13/17 for flash pulmonary edema & UTI and started on IV Lasix and IV levofloxacin. Patient's respiratory status significantly improves after IV Lasix and is breathing well on room air. CTA chest found no evidence of PE but CT A/P found cecum mass measuring 3.1 x 3.4 x 3.7 cm. Patient was also noted to have elevated troponin (0.03, 0.07, 0.06). Echo on 04/14/17 found LVEF 25% with severe global LV systolic dysfunction and mild diastolic dysfunction. Per surgery, patient will likely need right hemicolectomy but that will be after patient's other current medical problems are taken care of. Cardiology thinks the elevated troponin is likely demand ischemia in the setting of acute systolic CHF but plans to have LHC to rule out ischemic cause. But right before LHC, patient declined the procedure and insisted to leave hospital. Patient was transferred back to her room. Nurse and I explained to patient that it's important for her to stay given her significant systolic heart failure can potentially kill her. Despite of her short-term memory problem, patient seems to understand that risk but still insists to go home AGAINST MEDICAL ADVICE with repeated saying of "I have no chest pain." Patient's fiance at bedside also states that he can take care of her at home and will send her back here if thing goes bad. A prescription of levofloxacin 750 mg PO q48H (2 pills, no refill) with instruction to take at 2 pm on 04/15/17 & 04/17/17 were given to patient and her fiance. Patient is instructed to limit her fluid intake given her significant CHF. ANA-i like lisinopril cannot be given at this time because of patient's SCr at 1.16. Beta jeanie cannot be given at this time because of patient's low blood pressure (as low as 85/53 today). Phone numbers of cardiology and surgery office were provided and patient is instructed to call those number on Monday to set up outpatient follow-up. Patient is also instructed to come back to ED immediately if she developed respiratory distress. Patient and her fiance signed the AGAINST MEDICAL ADVICE form and left. - Time Spent with Patient Total time spent providing and/or coordinating discharge services: Greater than 30 minutes - Constitutional Vitals: Temp Pulse Resp BP Pulse Ox 99 F 99 16 88/71 100 04/14/17 15:46 04/14/17 15:46 04/14/17 15:46 04/14/17 15:46 04/14/17 15:46 Exam: Please refer to progress note on same day. - VTE Documentation of Mechanical Device: Intermittent pneumatic compression device <Tan Apodaca - Last Filed: 04/14/17 18:47> Date of Encounter: 04/14/17 - Discharge Diagnosis (1) Acute systolic CHF (congestive heart failure) Status: Acute (2) Pulmonary edema Status: Resolved Qualifiers: Qualified Code(s): J81.0 - Acute pulmonary edema (3) Carotid artery disease Status: Chronic Qualifiers: Qualified Code(s): I77.9 - Disorder of arteries and arterioles, unspecified (4) Urinary tract infection Status: Acute Qualifiers: Qualified Code(s): N30.00 - Acute cystitis without hematuria (5) Poor short term memory Status: Acute (6) Cecum mass Status: Acute (7) Tobacco abuse Status: Acute (8) Moderate protein-calorie malnutrition Status: Chronic Procedures/tests Complete & Pending: Procedures Performed prior 72 hours Category Date Time Status CT abd pelvis w iv no oral [CT] Stat Cat Scan 04/13/17 16:[address] angio chest [CT] Stat Cat Scan 04/13/17 16:30 Completed CL Cardiac Catheterization [CL] Routine Supervisor Plastering 04/14/17 14:26 Ordered Date of admission: 04/13/17 13:03 Primary care physician: PCP NO Consults: 04/13/17 14:09 Consult to Nutrition [CONS] Routine Comment: Consulting Provider: NUTRITION Reason for Dietary Consult: MST Score Consult to Master Of Ceremonies [CONS] Routine Reason for SW Consult: discharge planning 04/13/17 14:53 Consult to Cardiology [CONS] Routine Comment: Consulting Provider: Cardiology [facility] Reason for Consult: New onset CHF. Call Completed: Yes 04/13/17 18:55 Consult to Surgery [CONS] Routine Consulting Provider: Surgery [facility] Reason for Consult: circumpherential cecal mass causing partial bowel obstruction Call Completed: Yes Hospital course: Ms. Wellington is a 76 year old female - Time Spent with Patient Total time spent providing and/or coordinating discharge services: 40min - Constitutional Vitals: Temp Pulse Resp BP Pulse Ox 99 F 99 16 88/71 100 04/14/17 15:46 04/14/17 15:46 04/14/17 15:46 04/14/17 15:46 04/14/17 15:46 - Attending Attestation I examined this patient and my medical decision-making was reviewed with the Resident Physician on 04/14/17. I agree with the documented findings, disposition and treatment plan as described except to the extent set forth below. Please see progress note of today for further information Pt got to [employer] and refused cath. She was agitated and insisting on leaving. Fiance at bedside and agreed to take her home. Despite the fact that she has poor short term memory she is in no distress. She appears to understand her risks as does her fiance. I do not feel I can keep her against her will. She will leave AMA.
--- NOTE | 2017-04-14 18:45 | General Surgery Consult Note ---
Date of Encounter: 04/14/17 Time of Encounter: 18:05 History of Present Illness Consult date: 04/13/17 Reason for consult: abdominal pain (Annular mass ascending colon) Requesting physician: Elina Dominguez History of present illness: General Surgery =- patient seen and examined earlier today, approx 13:30; and again this evening. Brief history - 76-year-old female admitted after presenting to the emergency department for further evaluation of increased confusion over the last several days. Evaluation included CT of the head which was unremarkable. The patient had an abnormal UA which was deemed as a possible source of her mental status changes. During my examination of the patient earlier today, the patient seemed awake and alert but during my discussion with the patient and her fiance , the patient repeatedly asked the same questions. The patient's fiance admits that the patient's confusion has been slowly worsening over the past few months. Apparently the patient complained of abdominal pain prompting her providers to obtain a CT of the abdomen/pelvis. These images were personally reviewed with [facility] just prior to my presenting to the patient's room at approximately 13:[address] of the abdomen and pelvis was completed concomitant with a CTA. The CTA was notable for normal pulmonary arteries, no pulmonary emboli, normal-appearing mediastinum with atherosclerotic disease identified with coronary artery involvement. Calcified mediastinal lymph nodes consistent with remote granulomatous process are also noted. Pulmonary examination is notable for small bilateral pleural effusions with dependent subsegmental atelectasis. The abdominal imaging is notable for a large amount of stool within the cecum with an adjacent circumferential mass in the descending colon measuring 3.1 x 3.4 x 3.7 cm. Adjacent pericolonic stranding is identified without pneumatosis. The findings were consistent with colon cancer prompting a surgical consultation. At the time of my examination the patient indicates the abdominal pain had completely resolved next she was moving her bowels normally. Patient refused to consider my recommendation that surgery was indicated. Past medical history: Possible urinary tract infection; congestive heart failure ; long-standing tobacco use; anxiety and depression. Allergies: No known drug allergies Medications: The patient takes no medications Social history: Patient is a lifelong smoker, she admits to 2 packs a day for the last 40 years. Patient denied any alcohol or illicit drug use Physical examination: Woman who appears older than her stated age, lying comfortably in her hospital bed. She was in no acute distress. The patient has been afebrile with maximum temperature 99.0; pulse 99; respirations 16 and 19; blood pressure 98/62 119/74. SPO2 on room air 95% Skin: Warm without obvious jaundice Lungs: Clear with diminished bibasilar breath sounds Cardiac: Regular rate, no appreciable murmurs Abdomen was soft, slightly distended but nontender. No obvious intra- abdominal masses or hepatosplenomegaly was evident even to deep palpation. Bowel sounds were present. There was no rebound or CVAT. Extremities demonstrate no obvious clubbing, cyanosis, or edema Laboratories on admission: White count 11.2, hemoglobin 9.6 with hematocrit 32.6. Platelet count 445,000. Differential is unremarkable. D-dimer was 674, the significance of which is not clear. Electrolytes were notable for carbon dioxide of 18, chloride 111; BUN was 23, creatinine 0.92. Troponin was elevated at 0.06 with the B-natruretic peptide 685. Labs repeated today showed normalization of the leukocytosis, stable H&H at 9.9 and 32.6, platelets 434,000. Events within the ER include developing flash pulmonary edema following resuscitation with 1 L IV fluids Impression: 76-year-old female with findings consistent with colon cancer. An annular lesion of the mid descending colon with significant proximal distention of the cecum is noted. This represents at least a high-grade obstruction though the patient was able to decompress over the past 3 days having nothing to eat with eventual resolution of the abdominal pain. The patient has potential significant cardiac issues with elevated troponins and flash pulmonary edema developing during fluid resuscitation. The patient has an apparent history of congestive heart failure and long-standing tobacco use. I tried to discuss this in detail with the patient but was unsuccessful despite repeated explanations as to the radiologic pathology and the recommended surgery. It should be noted that on my return to examine the patient this evening and attempt rediscussion of the CT findings and the need for surgery, the patient was dressed and being discharged AMA. The patient's fiance is aware of the danger of such a discharge and the risk of recurrent abdominal pain and acute obstruction with possible perforation of the cecum. Such events could become life-threatening and could result in prolonged respiratory failure requiring mechanical ventilation, reactive dysrhythmia with or without OK and an abdominal catastrophe requiring ileostomy or colostomy. Past Med Surg Social Fam HX - Past Medical History Medical history: no medical history, non-contributory Psychiatric history: anxiety, depression - Social History Smoking Status: Current every day smoker (2PPD) Packs per day: 2 Smokeless Tobacco Status: No Alcohol use: rarely Drug use: none Medications and Allergies levoFLOXacin [Levofloxacin] 750 mg PO Q48H #2 tablet 04/14/17 [Rx] Allergies No Known Allergies Allergy (Verified 04/13/17 07:35) Review of Systems All systems PM: A 10-system review of systems was performed and is negative for pertinent findings except as documented above in the HPI. General Surgery Exam Initial Vital Signs Temp Pulse Resp BP Pulse Ox 98.8 F 110 18 123/106 93 04/13/17 07:24 04/13/17 07:24 04/13/17 07:24 04/13/17 07:24 04/13/17 07:24 Exam Initial Vital Signs Temp Pulse Resp BP Pulse Ox 98.8 F 110 18 123/106 93 04/13/17 07:24 04/13/17 07:24 04/13/17 07:24 04/13/17 07:24 04/13/17 07:24 Results - Labs 04/14/17 05:18 04/14/17 05:18 Abnormal lab results Hgb 9.9 g/dL (11.5-15.4) L 04/14/17 05:18 Hct 32.6 % (35.3-44.9) L 04/14/17 05:18 MCV 81.5 fL (83.0-100.0) L 04/14/17 05:18 MCH 24.8 pg (28.0-33.3) L 04/14/17 05:18 MCHC 30.4 g/dL (31.6-35.5) L 04/14/17 05:18 RDW 21.8 % (11.5-14.5) H 04/14/17 05:18 Plt Count 434 K/mcL (140-400) H 04/14/17 05:18 D-Dimer 674 ng/mLFEU (0-500) H 04/13/17 08:36 ABG pO2 107 mmHg (85-104) H 04/13/17 13:40 Creatinine 1.16 mg/dL (0.57-1.11) H 04/14/17 05:18 Est GFR ( Amer) 55 (> 60) L 04/14/17 05:18 Est GFR (Non-Af Amer) 45 (> 60) L 04/14/17 05:18 POC Glucose 116 (58-89) H 04/13/17 07:57 Troponin I 0.06 ng/mL (0-0.03) H* 04/13/17 21:58 B-Natriuretic Peptide 685 pg/mL (0-100) H 04/13/17 08:36 Albumin 3.2 g/dL (3.5-5.0) L 04/13/17 08:36 Globulin 3.7 g/dL (2.4-3.5) H 04/13/17 08:36 Albumin/Globulin Ratio 0.9 (1.1-2.2) L 04/13/17 08:36 Cholesterol 206 mg/dL (< 200) H 04/14/17 05:18 LDL Cholesterol, Calc 139 mg/dL (0-99) H 04/14/17 05:18 Carcinoembryonic Ag 8.0 ng/mL (0-5.0) H 04/14/17 05:18 Urine Protein 30 mg/dL (Neg-Trace) H 04/13/17 08:45 Urine Blood Small (Negative) H 04/13/17 08:45 Urine Nitrite Positive (Negative) A 04/13/17 08:45 Ur Leukocyte Esterase Trace (Negative) H 04/13/17 08:45 Urine Bacteria Many per hpf (None-Few) H 04/13/17 08:45 Ur Culture Indicated? YES (NO) A 04/13/17 08:45 Diabetes panel 04/14/17 Range/Units 05:18 Sodium 141 (136-145) mEq/L Potassium 3.9 (3.5-4.5) mEq/L Chloride 104 (98-109) mEq/L Carbon Dioxide 26 (19-29) mEq/L BUN 20 (7-20) mg/dL Creatinine 1.16 H (0.57-1.11) mg/dL Glucose 78 (70-99) mg/dL Calcium 9.1 (8.6-10.8) mg/dL Triglycerides 114 (< 150) mg/dL HDL Cholesterol 44 (40-59) mg/dL Calcium panel 04/14/17 Range/Units 05:18 Calcium 9.1 (8.6-10.8) mg/dL Pituitary panel 04/14/17 Range/Units 05:18 Sodium 141 (136-145) mEq/L Potassium 3.9 (3.5-4.5) mEq/L Chloride 104 (98-109) mEq/L Carbon Dioxide 26 (19-29) mEq/L BUN 20 (7-20) mg/dL Creatinine 1.16 H (0.57-1.11) mg/dL Glucose 78 (70-99) mg/dL Calcium 9.1 (8.6-10.8) mg/dL Adrenal panel 04/14/17 Range/Units 05:18 Sodium 141 (136-145) mEq/L Potassium 3.9 (3.5-4.5) mEq/L Chloride 104 (98-109) mEq/L Carbon Dioxide 26 (19-29) mEq/L BUN 20 (7-20) mg/dL Creatinine 1.16 H (0.57-1.11) mg/dL Glucose 78 (70-99) mg/dL Calcium 9.1 (8.6-10.8) mg/dL All other labs normal. Consult Discharge Plan - Plan Instructions: Levofloxacin (By mouth), Heart Failure (DC) Referrals: Mo Spear MD [Non-Partnered Physician] - Nick Perez CNP [Advanced Practice Nurse] - NO,PCP [Primary Care Provider] - Prescriptions: levoFLOXacin [Levofloxacin] 750 mg PO Q48H #2 tablet
[2017-04-15] MEDS ORDERED: *HR* Enoxaparin 30 MG/0.3 ML SYRINGE SQ SCH (06:00)
[2017-04-15] MEDS ORDERED: levoFLOXacin 750 MG TABLET PO SCH (13:00)
== END 2017-04-14 18:12 | disposition left against medical advice (07) | DRG 291 ==
LOC: 2NENU 07:22 → EMEROO 07:22 → 2NENU 12:48
PROVIDERS: ADMIT Hospitalist; ATTEND Internal Medicine

== ENCOUNTER 2017-12-01 07:20 | Inpatient (IN) ==
[2017-12-01] MEDS ORDERED: methylPREDNISolone 125 MG/2 ML VIAL IVP ONE (07:23)
[2017-12-01] MEDS ORDERED: Ipratropium/Albuterol Neb 3 ML IH ONE (07:23)
--- NOTE | 2017-12-01 07:28 | Emergency Department Note ---
Disposition Clinical Impression: Acute exacerbation of chronic obstructive airways disease, Septic shock, HCAP ( healthcare-associated pneumonia) Disposition: Admitted As Inpatient Condition: Critical Referrals: Dmitriy Alfonso MD [Primary Care Provider] - Forms: ED Satisfaction Letter Time of Disposition: 10:32 SOB HPI - General Chief Complaint: ED Urogenital-Female Stated Complaint: socorro Time Seen by Provider: 12/01/17 07:23 Source: patient, EMS Mode of arrival: EMS Limitations: no limitations, age Nursing Notes Reviewed: Yes Vital Signs Reviewed: Yes - History of Present Illness 77-year-old female presents history CHF COPD, anxiety, presents with cough congestion, hypoxia, her oxygen saturation was 95% EMS arrived at the scene at her house, they placed her on oxygen, Lasix and she has not had her home oxygen. She recently came back from [place] where she was hospitalized for CHF exacerbation. She has cough congestion fever chills weakness. Patient denies chest pain hemoptysis she has had some lower extremity swelling as well as her well. For the most part she is kind of confused on her review of systems and she denies most things around. She states that she is not sure why she did not oxygen. The granddaughter did arrive later and give a further history that the patient has been dropped off about a day ago by her significant other and she also has a colon mass that is not been further evaluated and she refuses further evaluation although she was referred by Dr. Bush to be seen by Dr. Jay and outpatient setting Pt Subjective Complaint: shortness of breath, cough Onset (ago): week(s) Context: recent illness Severity: severe Consistency/Duration: intermittent Improves with: oxygen Known history of: COPD, congestive heart failure Associated symptoms: Reports: fever, cough, wheezing, sputum production. Denies : chest pain, pain with inspiration Cough present: Yes Cough Description: Voluntary Cough Frequency: Continuous Sputum production: Yes Sputum Amount: Scant Sputum Color: Clear - Related Data Home Medications Medication Instructions Recorded Confirmed Alprazolam [Alprazolam Xr] 0.5 mg PO Q4H PRN 12/01/17 12/01/17 Aspirin/Calcium Carbonate/Mag 325 mg PO DAILY 12/01/17 12/01/17 [Aspirin Buffered 325 mg Tab] HYDROcodone/Acet 5/325 mg [[place] 1 tab PO Q4H PRN 12/01/17 12/01/17 5-325 mg] Metoprolol XL (24 HR) Succ [Toprol 25 mg PO DAILY 12/01/17 12/01/17 XL] Ranitidine HCl [Heartburn Relief] 150 mg PO HS 12/01/17 12/01/17 Sennosides/Docusate Sodium 1 tab PO DAILY PRN 12/01/17 12/01/17 [Senna-Docusate Sodium Tablet] Spironolactone [Aldactone] 25 mg PO DAILY 12/01/17 12/01/17 Allergies Allergy/AdvReac Type Severity Reaction Status Date / Time Sulfa (Sulfonamide Allergy Rash Verified 12/01/17 09:10 Antibiotics) All systems ED: reviewed and negative except as stated. Review of Systems: As Per HPI Constitutional: Reports: as per HPI, fever, chills, weakness Eyes: Denies: eye pain ENT ED: Denies: ear pain, throat pain Cardiovascular: Denies: chest pain Respiratory: Reports: as per HPI, cough, dyspnea, wheezes, sputum production Gastrointestinal: Reports: nausea. Denies: abdominal pain Genitourinary: Denies: urgency Musculoskeletal: Denies: back pain, neck pain Integumentary: Denies: rash Neurological: Denies: headache Past Medical History - Past Medical History Attestation: Yes The following information was validated with the patient. Source: patient Medical history: Reports: no medical history, non-contributory Psychiatric history: Reports: anxiety, depression - Social History Smoking Status: Current every day smoker (2PPD) Smokeless Tobacco Status: No Alcohol use: Reports: rarely Drug use: Reports: none Physical Exam Constitutional: [place] cachectic elderly female tachycardic and febrile. Eyes: PERRLA, sclera anicteric ENT & Mouth: MMM Neck: normal inspection, neck is supple Resp: Diffuse inspiratory and expiratory wheezes bilaterally CV: Tachycardic GI: normal inspection, soft, no guarding or rigidity Neuro: A&O3, CNII-XII grossly intact, KLEIN Skin: Skin turgor poor Course Course Narrative: 77-year-old female with cough congestion shortness of breath wheezes on exam given DuoNeb treatment, gentle fluid administration, her blood pressures 1:30 systolic, but plan for full septic workup as well as COPD exacerbation workup CBC BMP troponin, basic lab work chest x-ray - Reevaluation(s) Reevaluation #1: After evaluation patient with evidence of leukocytosis white count 17,000, she also had evidence of pulmonary infiltrates bilaterally, no lactic acidosis but will get H have antibiotics given recent hospitalization [place], social media content specialist was consultative arrived at bedside and spoke with the granddaughter about power of treatment specialist, the hospitalist did come down and evaluate the patient and discussed that the patient may be appropriate for ICU as her blood pressure then became low, she had several blood pressures that were in the 70s to 80s systolic, the criteria for septic shock, she was given lactic acid drawn, blood cultures, antibiotics with Vanc Zosyn and Levaquin. Time: 09:00 Reevaluation #2: Hospitalist will admit the patient, with a pulmonology consult, patient has improved C severe sepsis reevaluation, no dictation for pressors does have broad spectrum antibiotics on board early, and is responsive to fluid bolus. Time: 10:32 - Consultations Consultation #1: Consultative the golf ball molder who will see the patient and consult there are no ICU beds at this time they recommended that they have stepdown, no indication for intubation or BiPAP, blood pressure has improved to 92/50, and is slowly increasing after her fluid bolus, gentle administration of fluids is being done in the emergency department so only her 30 mg liter per kilogram bolus is being given, I did discuss this with the hospitalist as I am concerned about worsening her CHF with an existing ejection fraction of 30%, and the patient getting 1500 mL of fluid, I do think that she is hypotense, does warrant a fluid however careful due to CHF. Time: 10:00 Vital Signs Temperature 102.4 F H 12/01/17 07:21 Pulse Rate 123 12/01/17 07:21 Respiratory Rate 28 12/01/17 07:21 Blood Pressure 130/97 12/01/17 07:21 O2 Sat by Pulse Oximetry 100 12/01/17 07:21 Temperature 102.4 F H 12/01/17 07:29 Pulse Rate 96 12/01/17 09:51 Respiratory Rate 18 12/01/17 09:51 Blood Pressure 92/47 12/01/17 09:51 O2 Sat by Pulse Oximetry 98 12/01/17 09:51 Oxygen Delivery Oxygen Delivery Nasal Cannula Shortness of Breath/Dyspnea - MDM Narrative Medical decision making narrative: This documentation is done with the assistance of Dragon dictation. There may be inaccuracies in geotechnical field technician or spelling and typographical errors. I examined this patient and my medical decision-making was reviewed with the Resident Physician. I agree with the documented findings, disposition and treatment plan as described except to the extent set forth below. Patient seen and evaluated on arrival from EMS Dr. Marrero and myself, I agree with his evaluation and management plan, supervised the care of the patient states. Patient has a history of COPD. She was recently hospitalized in [place]. Uncertain of the details that waiting on family to give us those details this patient's poor historian. History of COPD. Medics gave her breathing treatments morning. She still has wheezing. She is apparently out of her oxygen at home. There are smokers in the household. We will treat her get her stabilized have social media content specialist speak with the family and determined to have any needs at home and then determine admission versus discharge. The patient's agreement this plan. Chest X-Ray 12/01/17 07:23 IMPRESSION: Small left pleural effusion. Patchy airspace opacities bilaterally, which may reflect pneumonia in the appropriate clinical setting. Recommend short-term follow-up to ensure resolution. D/ / Teena Friend MD / Teena Friend MD Interpreting Provider: Teena Friend MD 1000 hrs.: We will treat her as a hospital-acquired pneumonia. She needs SIRS criteria. Her blood pressures has dropped and so we will be given her fluids. There are no ICU beds available right now but there will be this afternoon. Spoke with the hospitalists and the eICU physician put her on stepdown unit and that if she needs transfer to ICU they can do that. Family is in agreement with her staying. We spoke with social media content specialist and they have evaluated patient and talked with family about getting her better resources for home. Patient's critical care time is 45 minutes excluding separately billable procedures. - Differential Diagnosis Likely: acute exacerbation of chronic obstructive airways disease, congestive heart failure, pneumonia - Medical Records Medical records reviewed: Yes I reviewed the patient's medical records. - Lab Data Lab results reviewed: Yes I reviewed the patient's lab results. Result diagrams: 12/01/17 08:37 12/01/17 08:06 Lab Results 12/01/17 12/01/17 12/01/17 Range/Units 08:06 08:06 08:06 WBC (4.3-11.1) K/mcL RBC (3.82-4.97) M/mcL Hgb (11.5-15.4) g/dL Hct (35.3-44.9) % MCV (83.0-100.0) fL MCH (28.0-33.3) pg MCHC (31.6-35.5) g/dL RDW Plt Count (140-400) K/mcL MPV (9.4-12.4) fL Seg Neutrophils % % Band Neutrophils % (0-4) % Lymphocytes % % Monocytes % % Basophils % % Neutrophils # (1.6-8.9) K/mcL Lymphocytes # (0.6-4.6) K/mcL Monocytes # (0.0-1.3) K/mcL Basophils # (0.0-0.2) K/mcL Platelet Estimate (Normal) Hypochromasia (Not Present) Anisocytosis (Not Present) Microcytosis (Not Present) Target Cells (Not Present) Chao Cells (Not Present) Acanthocytes (Spur) (Not Present) Schistocytes (Not Present) VBG pH (7.32-7.42) pH Units VBG pCO2 (41-51) mmHg VBG pO2 (25-50) mmHg VBG HCO3 (21-27) mEq/L Sodium 138 (136-145) mEq/L Potassium 4.7 (3.5-5.1) mEq/L Chloride 111 H (98-107) mEq/L Carbon Dioxide 18 L (23-29) mEq/L BUN 17 (8-23) mg/dL Creatinine 0.90 (0.60-1.20) mg/dL Est GFR ( Amer) > 60 (> 60) Est GFR (Non-Af Amer) > 60 (> 60) BUN/Creatinine Ratio 19 (6-26) Glucose 136 H (70-105) mg/dL Calculated Osmolality 290 (280-300) Lactic Acid 1.8 (0.5-2.2) mmol/L Calcium 7.8 L (8.6-10.3) mg/dL Phosphorus 3.0 (2.7-4.5) mg/dL Total Bilirubin 0.4 (0.3-1.0) mg/dL Direct Bilirubin 0.1 (0.0-0.2) mg/dL Indirect Bilirubin 0.3 (0.0-1.2) mg/dL AST 15 (13-39) Units/L ALT 9 (7-52) Units/L Alkaline Phosphatase 89 (34-104) Units/L Troponin I 0.04 H* (< 0.04) ng/mL B-Natriuretic Peptide (Less than 100) pg/mL Serum Total Protein 6.4 (6.4-8.9) g/dL Albumin 3.0 L (3.5-5.7) g/dL Globulin 3.4 (2.4-3.5) g/dL Albumin/Globulin Ratio 0.9 L (1.1-2.2) Lipase 27 (11-82) Units/L Urine Color (Yellow) Urine Clarity (Clear) Urine pH (5.0-8.0) pH Units Ur Specific [place] (1.010-1.025) Urine Protein (Neg-Trace) mg/dL Urine Glucose (UA) (Normal) mg/dL Urine Ketones (Negative) mg/dL Urine Blood (Negative) Urine Nitrite (Negative) Urine Bilirubin (Negative) Urine Urobilinogen (Normal) mg/dL Ur Leukocyte Esterase (Negative) Urine Microscopic RBC (0-3) per hpf Urine Microscopic WBC (0-3) per hpf Ur Squamous Epith Cells (None-Few) per lpf Urine Bacteria (None-Few) per hpf Hyaline Casts (None-Few) per lpf Ur Culture Indicated? (NO) Specimen Rejected 12/01/17 12/01/17 12/01/17 Range/Units 08:06 08:06 08:28 WBC (4.3-11.1) K/mcL RBC (3.82-4.97) M/mcL Hgb (11.5-15.4) g/dL Hct (35.3-44.9) % MCV (83.0-100.0) fL MCH (28.0-33.3) pg MCHC (31.6-35.5) g/dL RDW Plt Count (140-400) K/mcL MPV (9.4-12.4) fL Seg Neutrophils % % Band Neutrophils % (0-4) % Lymphocytes % % Monocytes % % Basophils % % Neutrophils # (1.6-8.9) K/mcL Lymphocytes # (0.6-4.6) K/mcL Monocytes # (0.0-1.3) K/mcL Basophils # (0.0-0.2) K/mcL Platelet Estimate (Normal) Hypochromasia (Not Present) Anisocytosis (Not Present) Microcytosis (Not Present) Target Cells (Not Present) [place] Cells (Not Present) Acanthocytes (Spur) (Not Present) Schistocytes (Not Present) VBG pH 7.26 L (7.32-7.42) pH Units VBG pCO2 50 (41-51) mmHg VBG pO2 66 H (25-50) mmHg VBG HCO3 22 (21-27) mEq/L Sodium (136-145) mEq/L Potassium (3.5-5.1) mEq/L Chloride (98-107) mEq/L Carbon Dioxide (23-29) mEq/L BUN (8-23) mg/dL Creatinine (0.60-1.20) mg/dL Est GFR ( Amer) (> 60) Est GFR (Non-Af Amer) (> 60) BUN/Creatinine Ratio (6-26) Glucose (70-105) mg/dL Calculated Osmolality (280-300) Lactic Acid (0.5-2.2) mmol/L Calcium (8.6-10.3) mg/dL Phosphorus (2.7-4.5) mg/dL Total Bilirubin (0.3-1.0) mg/dL Direct Bilirubin (0.0-0.2) mg/dL Indirect Bilirubin (0.0-1.2) mg/dL AST (13-39) Units/L ALT (7-52) Units/L Alkaline Phosphatase (34-104) Units/L Troponin I (< 0.04) ng/mL B-Natriuretic Peptide 3848 H (Less than 100) pg/mL Serum Total Protein (6.4-8.9) g/dL Albumin (3.5-5.7) g/dL Globulin (2.4-3.5) g/dL Albumin/Globulin Ratio (1.1-2.2) Lipase (11-82) Units/L Urine Color (Yellow) Urine Clarity (Clear) Urine pH (5.0-8.0) pH Units Ur Specific [place] (1.010-1.025) Urine Protein (Neg-Trace) mg/dL Urine Glucose (UA) (Normal) mg/dL Urine Ketones (Negative) mg/dL Urine Blood (Negative) Urine Nitrite (Negative) Urine Bilirubin (Negative) Urine Urobilinogen (Normal) mg/dL Ur Leukocyte Esterase (Negative) Urine Microscopic RBC (0-3) per hpf Urine Microscopic WBC (0-3) per hpf Ur Squamous Epith Cells (None-Few) per lpf Urine Bacteria (None-Few) per hpf Hyaline Casts (None-Few) per lpf Ur Culture Indicated? (NO) Specimen Rejected Clotted 12/01/17 12/01/17 Range/Units 08:30 08:37 WBC 17.1 H (4.3-11.1) K/mcL RBC 3.69 L (3.82-4.97) M/mcL Hgb 9.3 L (11.5-15.4) g/dL Hct 30.8 L (35.3-44.9) % MCV 83.5 (83.0-100.0) fL MCH 25.2 L (28.0-33.3) pg MCHC 30.2 L (31.6-35.5) g/dL RDW TNP Plt Count 344 (140-400) K/mcL MPV 9.2 L (9.4-12.4) fL Seg Neutrophils % 86.0 % Band Neutrophils % 2.0 (0-4) % Lymphocytes % 4.0 % Monocytes % 6.0 % Basophils % 2.0 % Neutrophils # 15.1 H (1.6-8.9) K/mcL Lymphocytes # 0.7 (0.6-4.6) K/mcL Monocytes # 1.0 (0.0-1.3) K/mcL Basophils # 0.3 H (0.0-0.2) K/mcL Platelet Estimate Normal (Normal) Hypochromasia Present A (Not Present) Anisocytosis 2+ A (Not Present) Microcytosis Present A (Not Present) Target Cells 1+ A (Not Present) [place] Cells 1+ A (Not Present) Acanthocytes (Spur) 1+ A (Not Present) Schistocytes 1+ A (Not Present) VBG pH (7.32-7.42) pH Units VBG pCO2 (41-51) mmHg VBG pO2 (25-50) mmHg VBG HCO3 (21-27) mEq/L Sodium (136-145) mEq/L Potassium (3.5-5.1) mEq/L Chloride (98-107) mEq/L Carbon Dioxide (23-29) mEq/L BUN (8-23) mg/dL Creatinine (0.60-1.20) mg/dL Est GFR ( Amer) (> 60) Est GFR (Non-Af Amer) (> 60) BUN/Creatinine Ratio (6-26) Glucose (70-105) mg/dL Calculated Osmolality (280-300) Lactic Acid (0.5-2.2) mmol/L Calcium (8.6-10.3) mg/dL Phosphorus (2.7-4.5) mg/dL Total Bilirubin (0.3-1.0) mg/dL Direct Bilirubin (0.0-0.2) mg/dL Indirect Bilirubin (0.0-1.2) mg/dL AST (13-39) Units/L ALT (7-52) Units/L Alkaline Phosphatase (34-104) Units/L Troponin I (< 0.04) ng/mL B-Natriuretic Peptide (Less than 100) pg/mL Serum Total Protein (6.4-8.9) g/dL Albumin (3.5-5.7) g/dL Globulin (2.4-3.5) g/dL Albumin/Globulin Ratio (1.1-2.2) Lipase (11-82) Units/L Urine Color Yellow (Yellow) Urine Clarity Clear (Clear) Urine pH 5.0 (5.0-8.0) pH Units Ur Specific [place] 1.016 (1.010-1.025) Urine Protein Trace (Neg-Trace) mg/dL Urine Glucose (UA) Normal (Normal) mg/dL Urine Ketones Negative (Negative) mg/dL Urine Blood Negative (Negative) Urine Nitrite Negative (Negative) Urine Bilirubin Negative (Negative) Urine Urobilinogen Normal (Normal) mg/dL Ur Leukocyte Esterase Negative (Negative) Urine Microscopic RBC 0-3 (0-3) per hpf Urine Microscopic WBC 0-3 (0-3) per hpf Ur Squamous Epith Cells Moderate H (None-Few) per lpf Urine Bacteria None Seen (None-Few) per hpf Hyaline Casts None Seen (None-Few) per lpf Ur Culture Indicated? NO (NO) Specimen Rejected - Radiology Data Radiology results reviewed: Yes I reviewed the patient's radiology results. - EKG Data EKG attestation: Yes I reviewed and interpreted this EKG. EKG shows normal: Reports: sinus rhythm Rate: Reports: tachycardia (1 25 bpm MA 182 QRS 76 QTC [address] segment elevation) ST segment depression in: Reports: v4, v5, v6 Interpretation: Reports: nonspecific ST-T wave changes - Core Measures AMI Core Measures Followed: No Measure Exclusions: not indicated Sepsis Reassessment Note - Evaluation Sepsis Screen: No Definite Risk Current Stage of Sepsis: septic shock Possible Source of Sepsis: pulmonary - Focused Exam Date of Encounter: 12/01/17 Time of Encounter: 10:24 Vital Signs: Vital Signs Temp Pulse Resp BP Pulse Ox 12/01/17 09:51 96 18 92/47 98 12/01/17 08:46 110 20 90/49 92 12/01/17 08:12 121 24 124/62 98 12/01/17 07:31 20 99 12/01/17 07:29 102.4 F H 120 22 130/97 99 12/01/17 07:21 102.4 F H 123 28 130/97 100 Respiratory Exam: Present: wheezes, rhonchi, prolonged expiratory phas Cardiovascular Exam: Present: tachycardia Capillary Refill: < 2 seconds Peripheral Pulse Strength: 2+ slightly diminished Peripheral Pulse Location: Radial Skin Exam: pale
[2017-12-01] MEDS ORDERED: Vancomycin 1,000 MG in D5% in Water 250 ML IVPB ONE (08:13)
[2017-12-01] MEDS ORDERED: Piperacillin/Tazobactam 3.375 GM in D5% in Water (Mini-Bag+) 100 ML IVPB ONE (08:13)
[2017-12-01] MEDS ORDERED: Levofloxacin 750 MG/150 ML 750 MG/150 ML BAG IVPB ONE (08:13)
[2017-12-01 08:33] LABS: VBG HCO3 22 mEq/L (21-27); VBG PCO2 50 mmHg (41-51); VBG PH 7.26 pH Units (7.32-7.42); VBG PO2 66 mmHg (25-50)
[2017-12-01] MEDS ORDERED: 0.9 % Sodium Chloride 500 ML IVC ONE ×2 (08:36→16:44)
[2017-12-01 08:37] LABS: Alanine Aminotransferase 9 Units/L (7-52); Albumin/Globulin Ratio 0.9 (1.1-2.2); Alkaline Phosphatase 89 Units/L (34-104); Aspartate Amino Transferase 15 Units/L (13-39); BUN/Creatinine Ratio 19 (6-26); Bilirubin,Direct 0.1 mg/dL (0.0-0.2); Bilirubin,Indirect 0.3 mg/dL (0.0-1.2); Bilirubin,Total 0.4 mg/dL (0.3-1.0); Blood Urea Nitrogen 17 mg/dL (8-23); Calcium 7.8 mg/dL (8.6-10.3); Carbon Dioxide 18 mEq/L (23-29); Chloride 111 mEq/L (98-107); Globulin 3.4 g/dL (2.4-3.5); Glucose 136 mg/dL (70-105); Lipase 27 Units/L (11-82); Osmolality,Calculated 290 (280-300); Potassium 4.7 mEq/L (3.5-5.1); Sodium 138 mEq/L (136-145); Total Protein 6.4 g/dL (6.4-8.9); eGFR For African Americans > 60 (> 60); eGFR For Non-African Americans > 60 (> 60)
[2017-12-01 08:42] LABS: Bilirubin,Urine Negative (Negative); Blood,Urine Negative (Negative); Clarity,Urine Clear (Clear); Color,Urine Yellow (Yellow); Glucose,Urine (UA) Normal (Normal); Ketones,Urine Negative (Negative); Leukocyte Esterase,Urine Negative (Negative); Nitrite,Urine Negative (Negative); Protein,Urine Trace mg/dL (Neg-Trace); Specific Gravity,Urine 1.016 (1.010-1.025); Urobilinogen,Urine Normal (Normal)
[2017-12-01 08:45] LABS: Bacteria,Urine None Seen per hpf (None-Few); Hyaline Casts,Urine None Seen per lpf (None-Few); RBC,Urine 0-3 per hpf (0-3); Squamous Epithelial Cell,Urine Moderate per lpf (None-Few); WBC,Urine 0-3 per hpf (0-3)
[2017-12-01 08:46] LABS: Hematocrit 30.8 % (35.3-44.9); Hemoglobin 9.3 g/dL (11.5-15.4); Mean Corpuscular HGB Conc 30.2 g/dL (31.6-35.5); Mean Corpuscular Hemoglobin 25.2 pg (28.0-33.3); Mean Corpuscular Volume 83.5 fL (83.0-100.0); Mean Platelet Volume 9.2 fL (9.4-12.4); Platelet Count 344 K/mcL (140-400); Red Blood Count 3.69 M/mcL (3.82-4.97)
[2017-12-01 09:23] LABS: Basophils # 0.3 K/mcL (0.0-0.2); Lymphocytes # 0.7 K/mcL (0.6-4.6); Neutrophils # 15.1 K/mcL (1.6-8.9)
[2017-12-01 09:24] LABS: Anisocytosis 2+ (Not Present); Hypochromasia Present (Not Present); Microcytosis Present (Not Present); Platelet Estimate Normal (Normal)
[2017-12-01 09:25] LABS: Acanthocytes 1+ (Not Present); Burr Cells 1+ (Not Present); Target Cells 1+ (Not Present)
[2017-12-01 09:26] LABS: Schistocytes 1+ (Not Present)
[2017-12-01] MEDS ORDERED: 0.9 % Sodium Chloride 1,000 ML IVC ONE (09:50)
[2017-12-01] MEDS ORDERED: Piperacillin/Tazobactam 3.375 GM in Water for inj. (sterile) 20 ML 20 ML IVP ONE (11:00)
[2017-12-01] MEDS ORDERED: Naloxone 0.4 MG/ML INJ IVP PRN (11:11)
[2017-12-01] MEDS ORDERED: Ondansetron 4 MG/2 ML VIAL IVP PRN (11:11)
[2017-12-01] MEDS ORDERED: *HR* HYDROcodone/Acet 5/325 mg TABLET PO PRN (11:30)
[2017-12-01] MEDS ORDERED: Sennosides/Docusate Sodium TABLET PO PRN (11:30)
[2017-12-01] MEDS ORDERED: ALPRAZolam 0.5 MG TABLET PO PRN (11:30)
--- NOTE | 2017-12-01 11:37 | Internal Med History&Physical ---
Date of Encounter: 12/01/17 Time of Encounter: 10:30 Assessment and Plan (1) HCAP (healthcare-associated pneumonia) Current visit: Yes Status: Acute HCAP. Pts. family reports pt. was hospitalized recently in [place] for 10 days. 1-View CXR today shows small left pleural effusion. WBC 17.1 on admission. Pt. currently meets sepsis criteria. Patchy airspace opacities bilaterally which may reflect pneumonia in the appropriate clinical setting. Pt. reports SOB/ dyspnea/cough. Blood cultures x2. Sputum culture. Legionella and strep pneumoniae antigens ordered. IVPB levaquin 750 daiy, vancomycin w/pharmacy dosing, and Zosyn 3.375 gm Q8 for infection coverage. Will adjust abx coverage based on culture results. Supplemental O2 w/titration and SpO2 monitoring. DuoNebs Q6 scheduled. Falls/safety precautions. Patient discussed with Dr. Hancock who is in agreement with plan of care. Patient is high risk for further morbidity and infection based on current sepsis criteria, pneumonia, current symptoms, and history. Consider transfer of pt. to ICU if hypotension persists. D/T current status, VS and I&O ordered Q30MIN. Consult to pulmonology ordered in ED. Inpatient. (2) Sepsis Current visit: Yes Status: Acute Pt. currently meets sepsis criteria w/WBC of 17.1, HCAP, HR of 123, and RR of 28. Pt. presents from ED w/SOB/dyspnea r/t pneumonia complicated by current CHF. Pt. given 1.5L of 0.9 NS in ED. Initial lactic acid 1.8. Will repeat lactic acid. Blood cultures x 2. Sputum culture. IVPB levaquin, vancomycin, and Zosyn for infection coverage. Will use IV fluids judiciously d/t current CHF. Continuous cardiac telemetry. Supplemental O2 w/SpO2 monitoring. Monitor pt. for signs of respiratory and/or cardiac distress. Monitor f/u labs. Qualifiers: Sepsis type: sepsis due to unspecified organism Qualified Code(s): A41.9 - Sepsis, unspecified organism (3) SOB (shortness of breath) Current visit: Yes Status: Acute Acute SOB/dyspnea d/t current pneumonia and CHF. Abnormal ABGs w/pH of 7.26 and VBG pO2 of 66. Carbon dioxide 18. Supplemental O2 w/titration and SpO2 monitoring. DuoNebs Q6 scheduled. BiPap on/off PRN. Falls/safety precautions. (4) Hypocalcemia Current visit: Yes Status: Acute Acute hypocalcemia w/calcium level of 7.8 on admission. PO calcium carbonate 1000 mg TID. Monitor f/u labs. Continuous cardiac telemetry. (5) Weakness Current visit: Yes Status: Acute Acute weakness d/t current SOB/dyspnea/pneumonia. Falls/safety precautions. (6) Hypotension Current visit: Yes Status: Acute Acute hypotension. Pts. BP on admission was 130/97. Pt. given 1.5L of 0.9 NS d/ t sepsis protocol. Subsequent BPs following fluids: 92/47, 90/54, and 86/52. Orders to check BP and VS Q30MIN. ED consulted Dr. Padilla in ICU regarding pts. possible move from floor to ICU d/t continued hypotension. Qualifiers: Hypotension type: unspecified hypotension type Qualified Code(s): I95.9 - Hypotension, unspecified (7) Acute systolic CHF (congestive heart failure) Current visit: Yes Status: Acute Acute systolic CHF. BNP on admission is 3848. Pt. is SOB/dyspneic. Pt. does not take diuretic currently. Will hold on administering IVP lasix d/t current sepsis and need for IV fluids per sepsis protocol. Will monitor I&O Q30 MIN. Vuong catheter ordered. Supplemental O2 w/titration and SpO2 monitoring. DuoNebs Q6 scheduled. (8) Altered mental status Current visit: Yes Status: Acute Pt. is altered on admission and oriented only to person and family members. Pt. thinks she is in [place] and does not not what year it is or what day of the week it is. Falls/safety precautions. Qualifiers: Altered mental status type: disorientation Qualified Code(s): R41.0 - Disorientation, unspecified (9) Elevated troponin Current visit: Yes Status: Chronic Hx of chronically elevated troponin. Initial troponin 0.04 on admission. Pt. denies chest pain or cardiac sx. Will trend x2. Continuous cardiac telemetry. (10) Tobacco abuse Current visit: Yes Status: Chronic Hx of chronic tobacco abuse. Pt. reports she smokes 2 PPD and has no intention of quitting at present. 21 mg nicotine patch ordered. (11) DVT prophylaxis Current visit: Yes Status: Acute Bilateral SCDs on LEs for DVT prophylaxis d/t chronically low Hgb/Hct. Fecal hemoccult ordered. Internal Medicine - H&P: HPI Chief complaint: SOB/Dyspnea Admitted From: Emergency Dept Plans for Post Hospital Care: Home History of present illness: Ms. Wellington is a 77 year old female with medical hx of mass in colon which was recently dx presents from the ED with chief complaint of SOB/dyspnea. Pt. reports that she was recently in [place] and she wasn't there very long. Family states pt. was hospitalized for 10 days in [place] but unsure why. Pt. is altered and is only oriented to person. Pt. still thinks she is in [place] and is unsure why she is here. Family states they called the squad d/t pt. having difficulty breathing this morning and looking solorio. Pt. was with [facility] and was discharged today d/t violation of plan of care. Pt. reports SOB and dyspnea but states she has not been ill recently and denies fever, chills, nausea, vomiting, headache, changes in vision, abdominal pain, diarrhea, constipation, chest pain, palpitations, numbness, tingling, dizziness, lightheadedness, pre-syncope, or syncope. Past Med Surg Social Fam HX - Past Medical History Source: patient, old records reviewed, obtained from family Medical history: no medical history, other (Colon mass) Psychiatric history: anxiety, depression - Social History Smoking Status: Current every day smoker (2PPD) Packs per day: 2 PPD Smokeless Tobacco Status: No Alcohol use: rarely Drug use: none Current living situation: Home, With Family Activity Level: Independent ambulation Recent Out of Country Travel Within the Last 8 Weeks: No Exposure or Possible Exposure to Illness During Travel: No - Family History Father History Unknown: Yes Race: Family Member Ethnicity: Non- Living Status: Mother Race: Family Member Ethnicity: Non- Living Status: Cause of : MD Hx Family Cardiac Disorders: Yes (MD, Stroke) Brother Race: Family Member Ethnicity: Non- Living Status: Still Living Hx Family Endocrine Disorder: Yes (DM) Internal Medicine - H&P: Meds Alprazolam [Alprazolam Xr] 0.5 mg PO Q4H PRN 12/01/17 [History] Aspirin/Calcium Carbonate/Mag [Aspirin Buffered 325 mg Tab] 325 mg PO DAILY 04/13 [History] HYDROcodone/Acet 5/325 mg [[place] 5-325 mg] 1 tab PO Q4H PRN 12/01/17 [History] Metoprolol XL (24 HR) Succ [Toprol XL] 25 mg PO DAILY 12/01/17 [History] Ranitidine HCl [Heartburn Relief] 150 mg PO HS 12/01/17 [History] Sennosides/Docusate Sodium [Senna-Docusate Sodium Tablet] 1 tab PO DAILY PRN 04/13 [History] Spironolactone [Aldactone] 25 mg PO DAILY 12/01/17 [History] 3 Allergy/AdvReac Type Severity Reaction Status Date / Time Sulfa (Sulfonamide Allergy Rash Verified 12/01/17 09:10 Antibiotics) All Systems PM: A 10-system review of systems was performed and is negative for pertinent findings except as documented above in the HPI. - Constitutional Constitutional: as per HPI, weakness, no chills, no fever(s), no night sweats - EENT Eyes: no change in vision, no discharge, no pain, no photophobia Ears: no ear discharge, no ear pain, no tinnitus Nose, mouth and throat: no dysphagia, no nasal discharge, no neck pain, no sore throat - Breasts Breasts: as per HPI - Cardiovascular Cardiovascular ROS IM: as per HPI, dyspnea, dyspnea on exertion, no chest pain, no diaphoresis, no lightheadedness, no palpitations, no syncope - Respiratory Respiratory: as per HPI, cough, dyspnea, dyspnea on exertion, no wheezing, no excessive phlegm production - Gastrointestinal Gastrointestinal: no abdominal pain, no diarrhea, no hematemesis, no hematochezia, no melena, no nausea, no vomiting - Genitourinary Genitourinary: no change in urinary stream, no dysuria, no flank pain, no hematuria Menstruation: as per HPI - Musculoskeletal Musculoskeletal ROS IM: no numbness, no tingling - Integumentary Integumentary IM: no rash, no unusual bruising - Neurological Neurological ROS: as per HPI, weakness, no confusion, no convulsions, no focal weakness, no numbness, no tingling, no tremor(s) - Psychiatric Psychiatric: as per HPI - Endocrine Endocrine IM: as per HPI - Hematologic/Lymphatic Hematologic/Lymphatic: no easy bruising - Allergic/Immunologic Allergic/Immunologic: as per HPI - Constitutional Vitals: Temp Pulse Resp BP Pulse Ox 102.4 F H 94 19 86/52 98 12/01/17 07:29 12/01/17 11:31 12/01/17 11:31 12/01/17 11:31 12/01/17 11:31 General appearance: Present: cooperative, A&O X 1, no acute distress, answers questions appropriately (With repeated attempts and help from family members present) - Head Head exam: Present: atraumatic, normal inspection, normocephalic - Eye Eye exam: Present: PERRL, conjuntiva pink, sclera anicteric Pupils: Present: PERRL - ENT ENT exam: Present: normal exam - Neck Neck exam general surgery: Present: supple, trachea midline. Absent: lymphadenopathy - Respiratory Respiratory exam: Present: accessory muscle use, wheezes. Absent: rales, rhonchi - Cardiovascular Cardiovascular exam: Present: +S1, +S2, tachycardia. Absent: diastolic murmur, gallop, rubs, systolic murmur - GI/Abdominal GI/Abdominal exam: Present: normal bowel sounds, soft, no peritoneal signs. Absent: distended, tenderness - Rectal Rectal exam: Present: deferred - Additional comments: exam deferred. - Extremities Exam Extremities exam: Present: pedal edema, warm, radial pulses palpable and symmetrical. Absent: calf tenderness, cyanotic - Back Exam Back exam: Present: normal inspection - Neurological Exam Neurological exam: Present: altered, CN II-XII intact, no focal deficits. Absent: pronater drift, facial droop, speech deficit - Psychiatric Psychiatric exam: Present: anxious - Skin Skin exam: Present: dry, intact Internal Med - H&P Results - Labs CBC & Chem 7: 12/01/17 08:37 12/01/17 08:06 Labs: Short CBC 12/01/17 Range/Units 08:37 WBC 17.1 H (4.3-11.1) K/mcL Hgb 9.3 L (11.5-15.4) g/dL Hct 30.8 L (35.3-44.9) % Plt Count 344 (140-400) K/mcL Neutrophils # 15.1 H (1.6-8.9) K/mcL BMP 12/01/17 08:06 Sodium 138 Potassium 4.7 Chloride 111 H Carbon Dioxide 18 L BUN 17 Creatinine 0.90 Glucose 136 H Calcium 7.8 L Cardiac Enzymes 12/01/17 Range/Units 08:06 Troponin I 0.04 H* (< 0.04) ng/mL Liver Function 12/01/17 Range/Units 08:06 Total Bilirubin 0.4 (0.3-1.0) mg/dL Direct Bilirubin 0.1 (0.0-0.2) mg/dL AST 15 (13-39) Units/L ALT 9 (7-52) Units/L Alkaline Phosphatase 89 (34-104) Units/L Albumin 3.0 L (3.5-5.7) g/dL Urine 12/01/17 Range/Units 08:30 Urine Color Yellow (Yellow) Urine Clarity Clear (Clear) Urine pH 5.0 (5.0-8.0) pH Units Ur Specific [place] 1.016 (1.010-1.025) Urine Protein Trace (Neg-Trace) mg/dL Urine Glucose (UA) Normal (Normal) mg/dL - ABG Interpretation ABG results: 12/01/17 08:28 VBG pH 7.26 L VBG pCO2 50 VBG pO2 66 H VBG HCO3 22 - EKG Data EKG shows normal: sinus rhythm Rate: tachycardia - EKG Data Prior EKG available for review: yes When compared to previous EKG: there is no significant change EKG comments: 12/01/17 11:51 EKG dated 04/13/17 shows sinus tachycardia and left atrial enlargement. EKG dated 12/01/16 shows sinus tachycardia with borderline left axis deviation and ST deviation with moderate T-wave abnormality (consider lateral ischemia). - Impressions ITS Impressions Chest X-Ray 12/01/17 07:23 IMPRESSION: Small left pleural effusion. Patchy airspace opacities bilaterally, which may reflect pneumonia in the appropriate clinical setting. Recommend short-term follow-up to ensure resolution. D/ / Teena Friend MD / Teena Friend MD Interpreting Provider: Teena Friend MD - Diagnostic Studies Chest x-ray Additional comments: Impressions Chest X-Ray 12/01/17 07:23
--- NOTE | 2017-12-01 12:09 | Electrocardiograph Report ---
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
--- NOTE | 2017-12-01 12:25 | Event Note ---
Date of Encounter: 12/01/17 Time of Encounter: 12:23 Patient and examined with nurse practitioner. Agree with assessment and plan. Healthcare associated pneumonia with sepsis. Patient hypotensive in the emergency room. she has not received any fluid. will give 30 mls per KG cautiously because of her systolic dysfunction. Case has been discussed with ICU. If She remains hypotensive with Map < 65 after fluid resuscitation she will need pressor support. Will start vanc Zosyn Levaquin. Patient has complicated social situation and social work job titles will see the patient. Prognosis guarded
[2017-12-01] MEDS: Nicotine 21 MG PATCH.TD24 TD SCH (15:10)
[2017-12-01] MEDS: Ipratropium/Albuterol Neb 3 ML IH SCH ×4 (15:23→23:33)
[2017-12-01] MEDS ORDERED: Piperacillin/Tazobactam 3.375 GM in D5% in Water (Mini-Bag+) 100 ML IVPB SCH (16:00)
[2017-12-01] MEDS ORDERED: Ipratropium/Albuterol Neb 3 ML IH SCH (16:00)
[2017-12-01] MEDS ORDERED: 0.9 % Sodium Chloride 1,000 ML ONE (16:47)
[2017-12-01] MEDS: Piperacillin/Tazobactam 3.375 GM/200 ML BAG IVPB SCH (18:10)
[2017-12-01] MEDS: Famotidine 20 MG TABLET PO SCH (19:54)
[2017-12-01] MEDS ORDERED: *HR* LORazepam 2 MG/ML VIAL IVP ONE (22:59)
[2017-12-01] MEDS ORDERED: *HR* LORazepam 2 MG/ML VIAL ONE (23:02)
[2017-12-02] MEDS ORDERED: Haloperidol Lactate 5 MG/ML VIAL IM ONE (00:25)
[2017-12-02] MEDS ORDERED: Haloperidol Lactate 5 MG/ML VIAL ONE (00:27)
[2017-12-02] MEDS: Ipratropium/Albuterol Neb 3 ML IH SCH ×6 (03:36→23:50)
[2017-12-02 04:10] LABS: Basophils % 0.1 %; Hematocrit 28.3 % (35.3-44.9); Hemoglobin 8.4 g/dL (11.5-15.4); Immature Granulocytes % 0.5 % (0-4); Lymphocytes % 5.4 %; Mean Corpuscular HGB Conc 29.7 g/dL (31.6-35.5); Mean Corpuscular Hemoglobin 25.3 pg (28.0-33.3); Mean Corpuscular Volume 85.2 fL (83.0-100.0); Mean Platelet Volume 9.2 fL (9.4-12.4); Monocytes # 0.7 K/mcL (0.0-1.3); Monocytes % 3.5 %; Platelet Count 373 K/mcL (140-400); Red Blood Count 3.32 M/mcL (3.82-4.97); Segmented Neutrophils % 90.5 %
[2017-12-02 04:12] LABS: INR 1.1; Prothrombin Time 12.4 Seconds (9.4-12.1)
[2017-12-02 04:15] LABS: Activated Partial Thrombo Time 30.3 Seconds (26.0-36.0)
[2017-12-02 04:31] LABS: Neutrophils # 16.8 K/mcL (1.6-8.9)
[2017-12-02 05:07] LABS: Alanine Aminotransferase 9 Units/L (7-52); Albumin 2.5 g/dL (3.5-5.7); Albumin/Globulin Ratio 0.9 (1.1-2.2); Alkaline Phosphatase 67 Units/L (34-104); Aspartate Amino Transferase 15 Units/L (13-39); BUN/Creatinine Ratio 24 (6-26); Bilirubin,Total 0.4 mg/dL (0.3-1.0); Blood Urea Nitrogen 17 mg/dL (8-23); Calcium 7.6 mg/dL (8.6-10.3); Carbon Dioxide 21 mEq/L (23-29); Chloride 112 mEq/L (98-107); Chol/HDL Ratio 3.3 (0-4.9); Cholesterol 144 mg/dL (< 200); Globulin 2.8 g/dL (2.4-3.5); Glucose 110 mg/dL (70-105); HDL Cholesterol 43 mg/dL (40-59); LDL Cholesterol,Calculated 90 mg/dL (0-99); Magnesium 1.8 mg/dL (1.6-2.6); Osmolality,Calculated 288 (280-300); Phosphorous 2.5 mg/dL (2.7-4.5); Potassium 4.1 mEq/L (3.5-5.1); Sodium 138 mEq/L (136-145); Total Protein 5.3 g/dL (6.4-8.9); Triglycerides 54 mg/dL (< 150); eGFR For African Americans > 60 (> 60); eGFR For Non-African Americans > 60 (> 60)
[2017-12-02 05:18] LABS: Hemoglobin A1C 4.7 %
[2017-12-02 05:37] LABS: Acanthocytes 1+ (Not Present); Anisocytosis 3+ (Not Present); Burr Cells 1+ (Not Present); Hypochromasia Present (Not Present); Poikilocytosis 3+ (Not Present); Schistocytes 1+ (Not Present)
[2017-12-02 05:38] LABS: Platelet Clumps Few (Not Present); Target Cells 1+ (Not Present)
[2017-12-02] MEDS: Piperacillin/Tazobactam 3.375 GM/200 ML BAG IVPB SCH ×3 (06:21→18:10)
[2017-12-02] MEDS ORDERED: Furosemide 20 MG/2 ML VIAL IVP ONE (07:00)
[2017-12-02] MEDS ORDERED: Nitroglycerin 0.4 MG TAB.SUBL SL ONE (07:08)
[2017-12-02] MEDS: Furosemide 20 MG/2 ML VIAL IVP SCH ×3 (08:19→18:10)
[2017-12-02] MEDS: Aspirin Enteric Coated 325 MG Tablet PO SCH (09:42)
[2017-12-02] MEDS: Nicotine 21 MG PATCH.TD24 TD SCH (09:44)
[2017-12-02] MEDS: Levofloxacin 750 MG/150 ML 750 MG/150 ML BAG IVPB SCH (09:45)
[2017-12-02] MEDS: Vancomycin 1,000 MG in D5% in Water 250 ML IVPB SCH (09:51)
[2017-12-02] MEDS: ALPRAZolam 0.5 MG TABLET PO PRN ×3 (10:40→22:11)
[2017-12-02] MEDS: *HR* HYDROcodone/Acet 5/325 mg TABLET PO PRN ×2 (15:24→22:13)
[2017-12-02] MEDS ORDERED: *HR* Metoprolol 5 MG/5 ML VIAL IVP ONE (15:52)
--- NOTE | 2017-12-02 19:07 | Internal Med Progress Note ---
Date of Encounter: 12/03/17 Time of Encounter: 11:00 - Assessment and plan (1) Sepsis Current Visit: Yes Status: Acute Assessment and plan: -Secondary to hospital-acquired pneumonia -No fluid resuscitation due to acute on chronic systolic heart failure -Management of HAP as below Qualifiers: Sepsis type: sepsis due to unspecified organism Qualified Code(s): A41.9 - Sepsis, unspecified organism (2) HCAP (healthcare-associated pneumonia) Current Visit: Yes Status: Acute Assessment and plan: -Continue coverage with IV vancomycin, IV Zosyn and IV Levaquin (3) Acute exacerbation of chronic obstructive airways disease Current Visit: Yes Status: Acute Assessment and plan: -Secondary to the above; continue DuoNeb's (4) CHF exacerbation Current Visit: Yes Status: Acute Assessment and plan: -Acute on chronic systolic heart failure -Echocardiogram on 03/2017 show LVEF of 25% -Continue IV diuresis Qualifiers: Congestive heart failure type: systolic Qualified Code(s): I50.23 - Acute on chronic systolic (congestive) heart failure (5) Altered mental status Current Visit: Yes Status: Acute Assessment and plan: -Resolved; secondary to above Qualifiers: Altered mental status type: disorientation Qualified Code(s): R41.0 - Disorientation, unspecified (6) DVT prophylaxis Current Visit: Yes Status: Acute Assessment and plan: Subcutaneous heparin - Subjective Interval history: With tachycardia throughout the day and had to be given IV Lopressor Continuing coverage for HAP and treatment for heart failure exacerbation - Constitutional Vitals: Temp Pulse Resp BP Pulse Ox 98.5 F 135 20 134/95 97 12/02/17 17:02 12/02/17 17:02 12/02/17 17:02 12/02/17 17:02 12/02/17 17:02 General appearance: Present: cooperative, A&O X 1, no acute distress, answers questions appropriately (With repeated attempts and help from family members present) - Respiratory Respiratory exam: Present: CTAB. Absent: accessory muscle use, rales, rhonchi, wheezes - Cardiovascular Cardiovascular exam: Present: RRR, +S1, +S2. Absent: diastolic murmur, gallop, rubs, systolic murmur Internal Medicine: Result - Labs CBC & Chem 7: 12/03/17 03:43 12/03/17 03:43 Labs: Short CBC 12/02/17 Range/Units 03:29 WBC 18.6 H (4.3-11.1) K/mcL Hgb 8.4 L (11.5-15.4) g/dL Hct 28.3 L (35.3-44.9) % Plt Count 373 (140-400) K/mcL Neutrophils # 16.8 H (1.6-8.9) K/mcL BMP 12/02/17 03:29 Sodium 138 Potassium 4.1 Chloride 112 H Carbon Dioxide 21 L BUN 17 Creatinine 0.70 Glucose 110 H Calcium 7.6 L Cardiac Enzymes 12/01/17 12/02/17 Range/Units 23:15 08:28 Troponin I 0.09 H* 0.03 (< 0.04) ng/mL Liver Function 12/02/17 Range/Units 03:29 Total Bilirubin 0.4 (0.3-1.0) mg/dL AST 15 (13-39) Units/L ALT 9 (7-52) Units/L Alkaline Phosphatase 67 (34-104) Units/L Albumin 2.5 L (3.5-5.7) g/dL - ABG Interpretation ABG results: PT/INR, D-dimer PT 12.4 Seconds (9.4-12.1) H 12/02/17 03:29 Consult Discharge Plan - Plan Referrals: Dmitriy Alfonso MD [Primary Care Provider] -
[2017-12-02] MEDS: Famotidine 20 MG TABLET PO SCH (21:14)
[2017-12-02] MEDS: *HR* Heparin 5,000 UNIT/ML VIAL SQ SCH (21:15)
[2017-12-03] MEDS: Piperacillin/Tazobactam 3.375 GM/200 ML BAG IVPB SCH ×3 (01:44→18:38)
[2017-12-03] MEDS: Ipratropium/Albuterol Neb 3 ML IH SCH ×6 (03:30→23:05)
[2017-12-03 04:18] LABS: Basophils % 0.1 %; Hematocrit 28.7 % (35.3-44.9); Hemoglobin 8.6 g/dL (11.5-15.4); Immature Granulocytes % 0.7 % (0-4); Lymphocytes # 1.3 K/mcL (0.6-4.6); Lymphocytes % 8.2 %; Mean Corpuscular Hemoglobin 25.6 pg (28.0-33.3); Mean Corpuscular Volume 85.4 fL (83.0-100.0); Mean Platelet Volume 9.6 fL (9.4-12.4); Monocytes # 0.7 K/mcL (0.0-1.3); Monocytes % 4.3 %; Neutrophils # 13.6 K/mcL (1.6-8.9); Platelet Count 323 K/mcL (140-400); Red Blood Count 3.36 M/mcL (3.82-4.97); Segmented Neutrophils % 86.7 %
[2017-12-03 04:39] LABS: Albumin 2.5 g/dL (3.5-5.7); Albumin/Globulin Ratio 0.9 (1.1-2.2); Bilirubin,Total 0.4 mg/dL (0.3-1.0); Calcium 8.3 mg/dL (8.6-10.3); Globulin 2.9 g/dL (2.4-3.5); Potassium 4.4 mEq/L (3.5-5.1); Total Protein 5.4 g/dL (6.4-8.9)
[2017-12-03 04:54] LABS: Hypochromasia Present (Not Present)
[2017-12-03 04:55] LABS: Target Cells 1+ (Not Present)
[2017-12-03 04:56] LABS: Acanthocytes 1+ (Not Present)
[2017-12-03 04:59] LABS: Anisocytosis 2+ (Not Present); Platelet Estimate Normal (Normal); Schistocytes 1+ (Not Present)
[2017-12-03] MEDS: *HR* Heparin 5,000 UNIT/ML VIAL SQ SCH ×3 (05:16→21:08)
[2017-12-03] MEDS: Aspirin Enteric Coated 325 MG Tablet PO SCH (10:10)
[2017-12-03] MEDS: Nicotine 21 MG PATCH.TD24 TD SCH (10:10)
[2017-12-03] MEDS: Furosemide 20 MG/2 ML VIAL IVP SCH ×2 (10:11→16:15)
[2017-12-03] MEDS: Vancomycin 1,000 MG in D5% in Water 250 ML IVPB SCH (10:33)
[2017-12-03] MEDS: ALPRAZolam 0.5 MG TABLET PO PRN ×2 (16:15→21:08)
[2017-12-03] MEDS ORDERED: *HR* Metoprolol 5 MG/5 ML VIAL IVP STA (16:53)
[2017-12-03] MEDS ORDERED: *HR* Metoprolol 5 MG/5 ML VIAL IVP ONE (16:57)
[2017-12-03] MEDS ORDERED: Metoprolol XL (24 HR) Succ 25 MG TAB.ER.24H PO SCH (17:00)
[2017-12-03] MEDS ORDERED: 0.9 % Sodium Chloride 500 ML ONE (17:28)
[2017-12-03] MEDS ORDERED: 0.9 % Sodium Chloride 500 ML IVC ONE (18:00)
--- NOTE | 2017-12-03 19:25 | Internal Med Progress Note ---
Date of Encounter: 12/03/17 Time of Encounter: 11:00 - Assessment and plan (1) Sepsis Current Visit: Yes Status: Acute Assessment and plan: -Secondary to hospital-acquired pneumonia -No fluid resuscitation due to acute on chronic systolic heart failure -Management of HAP as below Qualifiers: Sepsis type: sepsis due to unspecified organism Qualified Code(s): A41.9 - Sepsis, unspecified organism (2) HCAP (healthcare-associated pneumonia) Current Visit: Yes Status: Acute Assessment and plan: -Continue coverage with IV vancomycin, IV Zosyn and IV Levaquin (3) Acute exacerbation of chronic obstructive airways disease Current Visit: Yes Status: Acute Assessment and plan: -Secondary to the above; continue DuoNeb's (4) CHF exacerbation Current Visit: Yes Status: Acute Assessment and plan: -Acute on chronic systolic heart failure -Echocardiogram on 03/2017 show LVEF of 25% -We will hold IV diuresis to hypotension Qualifiers: Congestive heart failure type: systolic Qualified Code(s): I50.23 - Acute on chronic systolic (congestive) heart failure (5) Altered mental status Current Visit: Yes Status: Acute Qualifiers: Altered mental status type: disorientation Qualified Code(s): R41.0 - Disorientation, unspecified (6) DVT prophylaxis Current Visit: Yes Status: Acute Assessment and plan: Subcutaneous heparin - Subjective Interval history: With tachycardia throughout the day and had to be given IV Lopressor Patient also developed hypotension and had to be given IV fluids Continuing coverage for HAP and treatment for heart failure exacerbation - Constitutional Vitals: Temp Pulse Resp BP Pulse Ox 98.3 F 110 16 109/72 96 12/03/17 15:24 12/03/17 18:22 12/03/17 18:22 12/03/17 18:22 12/03/17 18:22 General appearance: Present: cooperative, A&O X 1, no acute distress, answers questions appropriately (With repeated attempts and help from family members present) - Respiratory Respiratory exam: Present: CTAB. Absent: accessory muscle use, rales, rhonchi, wheezes - Cardiovascular Cardiovascular exam: Present: RRR, +S1, +S2. Absent: diastolic murmur, gallop, rubs, systolic murmur Internal Medicine: Result - Labs CBC & Chem 7: 12/03/17 03:43 12/03/17 03:43 Labs: Short CBC 12/03/17 Range/Units 03:43 WBC 15.7 H (4.3-11.1) K/mcL Hgb 8.6 L (11.5-15.4) g/dL Hct 28.7 L (35.3-44.9) % Plt Count 323 (140-400) K/mcL Neutrophils # 13.6 H (1.6-8.9) K/mcL BMP 12/03/17 03:43 Sodium 137 Potassium 4.4 Chloride 107 Carbon Dioxide 25 BUN 23 Creatinine 1.16 Glucose 107 H Calcium 8.3 L Liver Function 12/03/17 Range/Units 03:43 Total Bilirubin 0.4 (0.3-1.0) mg/dL AST 50 H (13-39) Units/L ALT 25 (7-52) Units/L Alkaline Phosphatase 75 (34-104) Units/L Albumin 2.5 L (3.5-5.7) g/dL - ABG Interpretation ABG results: PT/INR, D-dimer PT 12.4 Seconds (9.4-12.1) H 12/02/17 03:29 Consult Discharge Plan - Plan Referrals: Dmitriy Alfonso MD [Primary Care Provider] -
[2017-12-03] MEDS: Famotidine 20 MG TABLET PO SCH (21:08)
[2017-12-03] MEDS: *HR* HYDROcodone/Acet 5/325 mg TABLET PO PRN (21:09)
[2017-12-04] MEDS: Piperacillin/Tazobactam 3.375 GM/200 ML BAG IVPB SCH ×3 (03:17→20:30)
[2017-12-04] MEDS: Ipratropium/Albuterol Neb 3 ML IH SCH ×5 (03:17→20:33)
[2017-12-04 03:59] LABS: Basophils % 0.2 %; Eosinophils % 0.1 %; Hematocrit 31.4 % (35.3-44.9); Hemoglobin 9.3 g/dL (11.5-15.4); Immature Granulocytes % 0.7 % (0-4); Lymphocytes # 1.8 K/mcL (0.6-4.6); Lymphocytes % 14.6 %; Mean Corpuscular HGB Conc 29.6 g/dL (31.6-35.5); Mean Corpuscular Hemoglobin 24.9 pg (28.0-33.3); Mean Corpuscular Volume 84.2 fL (83.0-100.0); Mean Platelet Volume 9.5 fL (9.4-12.4); Monocytes # 0.5 K/mcL (0.0-1.3); Neutrophils # 9.8 K/mcL (1.6-8.9); Platelet Count 340 K/mcL (140-400); Red Blood Count 3.73 M/mcL (3.82-4.97); Segmented Neutrophils % 80.4 %
[2017-12-04 04:23] LABS: Anisocytosis 2+ (Not Present); Platelet Estimate Normal (Normal); Poikilocytosis 2+ (Not Present); Target Cells 1+ (Not Present)
[2017-12-04 04:36] LABS: Potassium 3.1 mEq/L (3.5-5.1)
[2017-12-04 04:37] LABS: Albumin 2.5 g/dL (3.5-5.7); Albumin/Globulin Ratio 0.8 (1.1-2.2); Bilirubin,Total 0.4 mg/dL (0.3-1.0); Calcium 8.1 mg/dL (8.6-10.3); Total Protein 5.5 g/dL (6.4-8.9)
[2017-12-04] MEDS: *HR* Heparin 5,000 UNIT/ML VIAL SQ SCH ×3 (06:23→21:24)
[2017-12-04] MEDS: Nicotine 21 MG PATCH.TD24 TD SCH (08:10)
[2017-12-04] MEDS: Levofloxacin 750 MG/150 ML 750 MG/150 ML BAG IVPB SCH (08:10)
[2017-12-04] MEDS: Aspirin Enteric Coated 325 MG Tablet PO SCH (08:11)
--- NOTE | 2017-12-04 09:28 | Electrocardiograph Report ---
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
--- NOTE | 2017-12-04 09:47 | Electrocardiograph Report ---
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
[2017-12-04] MEDS: Vancomycin 1,000 MG in D5% in Water 250 ML IVPB SCH (10:04)
--- NOTE | 2017-12-04 10:14 | Electrocardiograph Report ---
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
--- NOTE | 2017-12-04 10:41 | Electrocardiograph Report ---
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
[2017-12-04] MEDS: ALPRAZolam 0.5 MG TABLET PO PRN ×2 (11:05→18:18)
[2017-12-04] MEDS: Furosemide 20 MG/2 ML VIAL IVP SCH (11:11)
[2017-12-04] MEDS ORDERED: 0.9 % Sodium Chloride 500 ML ONE (16:17)
--- NOTE | 2017-12-04 17:07 | Internal Med Progress Note ---
Date of Encounter: 12/04/17 Time of Encounter: 11:00 - Assessment and plan (1) Sepsis Current Visit: Yes Status: Acute Assessment and plan: -She continues to have hypotension and tachycardia secondary to sepsis due to HAP in the face of acute on chronic systolic heart failure with ejection fraction 25%. -Gentle fluid resuscitation due to acute on chronic systolic heart failure -Management of HAP as below Qualifiers: Sepsis type: sepsis due to unspecified organism Qualified Code(s): A41.9 - Sepsis, unspecified organism (2) HCAP (healthcare-associated pneumonia) Current Visit: Yes Status: Acute Assessment and plan: -Recent leukocytosis has improved from a white blood cell count 17.1 on admission to 12.2 today and she is no longer febrile -Blood cultures negative -Continue coverage with IV vancomycin, IV Zosyn and IV Levaquin (3) Acute exacerbation of chronic obstructive airways disease Current Visit: Yes Status: Acute Assessment and plan: -Secondary to the above; continue DuoNeb's (4) CHF exacerbation Current Visit: Yes Status: Acute Assessment and plan: -Acute on chronic systolic heart failure -Echocardiogram on 03/2017 show LVEF of 25% -We will hold IV diuresis because of hypotension due to sepsis above Qualifiers: Congestive heart failure type: systolic Qualified Code(s): I50.23 - Acute on chronic systolic (congestive) heart failure (5) Altered mental status Current Visit: Yes Status: Acute Assessment and plan: -Resolved; secondary to above Qualifiers: Altered mental status type: disorientation Qualified Code(s): R41.0 - Disorientation, unspecified (6) DVT prophylaxis Current Visit: Yes Status: Acute Assessment and plan: Subcutaneous heparin - Subjective Interval history: She continues to have hypotension and tachycardia secondary to sepsis due to HAP in the face of acute on chronic systolic heart failure with ejection fraction 25%. - Constitutional Vitals: Temp Pulse Resp BP Pulse Ox 97.7 F 87 14 101/84 98 12/04/17 15:58 12/04/17 15:58 12/04/17 15:58 12/04/17 15:58 12/04/17 15:58 General appearance: Present: cooperative, A&O X 1, no acute distress, answers questions appropriately (With repeated attempts and help from family members present) - Respiratory Respiratory exam: Present: CTAB. Absent: accessory muscle use, rales, rhonchi, wheezes - Cardiovascular Cardiovascular exam: Present: RRR, +S1, +S2. Absent: diastolic murmur, gallop, rubs, systolic murmur - Extremities Exam Extremities exam: Absent: pedal edema Internal Medicine: Result - Labs CBC & Chem 7: 12/04/17 03:31 12/04/17 03:31 Labs: Short CBC 12/04/17 Range/Units 03:31 WBC 12.2 H (4.3-11.1) K/mcL Hgb 9.3 L (11.5-15.4) g/dL Hct 31.4 L (35.3-44.9) % Plt Count 340 (140-400) K/mcL Neutrophils # 9.8 H (1.6-8.9) K/mcL BMP 12/04/17 03:31 Sodium 140 Potassium 3.1 L D Chloride 104 Carbon Dioxide 32 H BUN 22 Creatinine 1.12 Glucose 82 Calcium 8.1 L Liver Function 12/04/17 Range/Units 03:31 Total Bilirubin 0.4 (0.3-1.0) mg/dL AST 44 H (13-39) Units/L ALT 29 (7-52) Units/L Alkaline Phosphatase 72 (34-104) Units/L Albumin 2.5 L (3.5-5.7) g/dL - ABG Interpretation ABG results: PT/INR, D-dimer PT 12.4 Seconds (9.4-12.1) H 12/02/17 03:29 - VTE Documentation of Mechanical Device: Intermittent pneumatic compression device Consult Discharge Plan - Plan Referrals: Dmitriy Alfonso MD [Primary Care Provider] -
[2017-12-04] MEDS: Famotidine 20 MG TABLET PO SCH (20:30)
[2017-12-04] MEDS: Acetaminophen 325 MG TABLET PO PRN (21:38)
[2017-12-05] MEDS: Ipratropium/Albuterol Neb 3 ML IH SCH ×6 (00:16→20:01)
[2017-12-05] MEDS: Piperacillin/Tazobactam 3.375 GM/200 ML BAG IVPB SCH ×3 (01:01→18:01)
[2017-12-05] MEDS: *HR* Heparin 5,000 UNIT/ML VIAL SQ SCH ×3 (05:03→21:36)
[2017-12-05 05:43] LABS: Basophils % 0.2 %; Eosinophils % 0.1 %; Hematocrit 30.5 % (35.3-44.9); Hemoglobin 9.3 g/dL (11.5-15.4); Immature Granulocytes % 0.5 % (0-4); Lymphocytes # 2.2 K/mcL (0.6-4.6); Lymphocytes % 16.9 %; Mean Corpuscular HGB Conc 30.5 g/dL (31.6-35.5); Mean Corpuscular Hemoglobin 25.4 pg (28.0-33.3); Mean Corpuscular Volume 83.3 fL (83.0-100.0); Mean Platelet Volume 9.7 fL (9.4-12.4); Monocytes # 0.7 K/mcL (0.0-1.3); Monocytes % 5.2 %; Platelet Count 332 K/mcL (140-400); Red Blood Count 3.66 M/mcL (3.82-4.97); Segmented Neutrophils % 77.1 %
[2017-12-05 05:46] LABS: Alanine Aminotransferase 27 Units/L (7-52); Albumin 2.3 g/dL (3.5-5.7); Albumin/Globulin Ratio 0.8 (1.1-2.2); Alkaline Phosphatase 68 Units/L (34-104); Aspartate Amino Transferase 34 Units/L (13-39); BUN/Creatinine Ratio 19 (6-26); Bilirubin,Total 0.4 mg/dL (0.3-1.0); Blood Urea Nitrogen 17 mg/dL (8-23); Calcium 7.8 mg/dL (8.6-10.3); Carbon Dioxide 34 mEq/L (23-29); Chloride 102 mEq/L (98-107); Glucose 86 mg/dL (70-105); Osmolality,Calculated 291 (280-300); Potassium 3.1 mEq/L (3.5-5.1); Sodium 140 mEq/L (136-145); Total Protein 5.3 g/dL (6.4-8.9); eGFR For African Americans > 60 (> 60); eGFR For Non-African Americans > 60 (> 60)
[2017-12-05 05:55] LABS: Neutrophils # 9.9 K/mcL (1.6-8.9)
[2017-12-05 06:32] LABS: Acanthocytes 3+ (Not Present); Anisocytosis 2+ (Not Present); Ovalocytes 1+ (Not Present); Platelet Estimate Normal (Normal); Poikilocytosis 2+ (Not Present); Target Cells 1+ (Not Present)
[2017-12-05 06:33] LABS: Hypochromasia Present (Not Present); Macrocytosis Present (Not Present); Microcytosis Present (Not Present)
[2017-12-05] MEDS ORDERED: Potassium Chloride Elixir 20 MEQ/15 ML UDC PO ONE (08:10)
[2017-12-05] MEDS ORDERED: Aminoglycoside Consult 1 EACH MC ONE (08:39)
--- NOTE | 2017-12-05 08:43 | Internal Med Progress Note ---
<TaoCurt - Last Filed: 12/05/17 13:06> Date of Encounter: 12/05/17 Time of Encounter: 08:41 - Assessment and plan (1) Sepsis Current Visit: Yes Status: Acute Assessment and plan: Secondary to pneumonia, and she was recently hospitalized in [place] She has received 3 days of Vanc,Zosyn, Levaquin; Vanc stopped Blood cultures remain negative Her white count has remained stable at 12.8 and she was afebrile and non- tachycardic overnight Qualifiers: Sepsis type: sepsis due to unspecified organism Qualified Code(s): A41.9 - Sepsis, unspecified organism (2) Bilateral pneumonia Current Visit: Yes Status: Acute Assessment and plan: Possible aspiration as patient has baseline dementia Will obtain speech consult for formal swallow evaluation Continue on Levaquin and Zosyn day 4, Vanc stopped after 3 days Blood cultures remain negative Obtain respiratory infection panel Qualifiers: Qualified Code(s): J18.9 - Pneumonia, unspecified organism (3) Altered mental status Current Visit: Yes Status: Chronic Assessment and plan: Unclear how far she is from her baseline, but she does have documented dementia and sitter at bedside Tried contacting Ervin, emergency contact on the chart, but could not get through She has complicated social case, will await social staff worker recommendations; she may go home with hospice Qualifiers: Altered mental status type: disorientation Qualified Code(s): R41.0 - Disorientation, unspecified (4) Acute systolic CHF (congestive heart failure) Current Visit: Yes Status: Acute Assessment and plan: Echo in March revealed EF 25% Will obtain another Echo today Resume her home Aldactone (5) DVT prophylaxis Current Visit: Yes Status: Acute Assessment and plan: Heparin SQ - Subjective Interval history: Pt seen and examined. She is very difficult to arouse but does make speak incoherently when sternal rubbed. No family at bedside but sitter states that she was awake until 3 AM. Attempted to call emergency contact Ervin, but could not get through. - Constitutional Vitals: Temp Pulse Resp BP Pulse Ox 97.5 F L 83 14 105/66 100 12/05/17 07:25 12/05/17 07:25 12/05/17 08:04 12/05/17 07:25 12/05/17 08:04 General appearance: Present: cooperative, no acute distress. Absent: answers questions appropriately Exam: difficult to arouse - Head Head exam: Present: atraumatic, normocephalic - Eye Eye exam: Present: PERRL, conjuntiva pink, sclera anicteric - Neck Neck exam general surgery: Present: supple, trachea midline. Absent: lymphadenopathy - Respiratory Respiratory exam: Present: CTAB. Absent: accessory muscle use, rales, rhonchi, wheezes - Cardiovascular Cardiovascular exam: Present: RRR, +S1, +S2. Absent: diastolic murmur, gallop, rubs, systolic murmur - GI/Abdominal GI/Abdominal exam: Present: normal bowel sounds, soft, no peritoneal signs. Absent: distended, tenderness - Extremities Exam Extremities exam: Present: warm, radial pulses palpable and symmetrical. Absent : calf tenderness, cyanotic, pedal edema - Neurological Exam Neurological exam: Present: no focal deficits. Absent: alert, facial droop, speech deficit - Skin Skin exam: Present: dry, intact Internal Medicine: Result - Labs CBC & Chem 7: 12/05/17 05:00 12/05/17 05:00 Labs: Short CBC 12/05/17 Range/Units 05:00 WBC 12.8 H (4.3-11.1) K/mcL Hgb 9.3 L (11.5-15.4) g/dL Hct 30.5 L (35.3-44.9) % Plt Count 332 (140-400) K/mcL Neutrophils # 9.9 H (1.6-8.9) K/mcL BMP 12/05/17 05:00 Sodium 140 Potassium 3.1 L Chloride 102 Carbon Dioxide 34 H BUN 17 Creatinine 0.90 Glucose 86 Calcium 7.8 L Liver Function 12/05/17 Range/Units 05:00 Total Bilirubin 0.4 (0.3-1.0) mg/dL AST 34 (13-39) Units/L ALT 27 (7-52) Units/L Alkaline Phosphatase 68 (34-104) Units/L Albumin 2.3 L (3.5-5.7) g/dL - ABG Interpretation ABG results: PT/INR, D-dimer PT 12.4 Seconds (9.4-12.1) H 12/02/17 03:29 - VTE Documentation of Mechanical Device: Intermittent pneumatic compression device Consult Discharge Plan - Plan Referrals: Dmitriy Alfonso MD [Primary Care Provider] - 12/14/17 2:15 pm (SENT WEB REQUEST ON 12-05-17 @ 0323) <Ariella Barnes - Last Filed: 12/05/17 17:20> Date of Encounter: 12/05/17 - Constitutional Vitals: Temp Pulse Resp BP Pulse Ox 98.2 F 106 17 135/96 96 12/05/17 16:17 12/05/17 16:17 12/05/17 16:17 12/05/17 16:17 12/05/17 16:17 Internal Medicine: Result - Labs CBC & Chem 7: 12/05/17 05:00 12/05/17 05:00 Labs: Short CBC 12/05/17 Range/Units 05:00 WBC 12.8 H (4.3-11.1) K/mcL Hgb 9.3 L (11.5-15.4) g/dL Hct 30.5 L (35.3-44.9) % Plt Count 332 (140-400) K/mcL Neutrophils # 9.9 H (1.6-8.9) K/mcL BMP 12/05/17 05:00 Sodium 140 Potassium 3.1 L Chloride 102 Carbon Dioxide 34 H BUN 17 Creatinine 0.90 Glucose 86 Calcium 7.8 L Liver Function 12/05/17 Range/Units 05:00 Total Bilirubin 0.4 (0.3-1.0) mg/dL AST 34 (13-39) Units/L ALT 27 (7-52) Units/L Alkaline Phosphatase 68 (34-104) Units/L Albumin 2.3 L (3.5-5.7) g/dL - ABG Interpretation ABG results: PT/INR, D-dimer PT 12.4 Seconds (9.4-12.1) H 12/02/17 03:29 - Impressions Impressions Echocardiogram 12/05/17 09:03 Impressions: LVEF 20%. Mildly dilated left ventricle. Indeterminate diastolic function. Normal right ventricular structure and function. Mild aortic regurgitation. Mild mitral regurgitation. No pulmonary hypertension. A pleural effusion is present. Left Ventricular Wall Motion: Rest Echo Findings The apex, apical inferior, mid inferior, basal inferior, apical anterior, mid anterior, basal anterior, apical septal, mid inferior septal, basal inferior septal, apical lateral, mid anterior lateral, basal anterior lateral, mid anterior septal, mid inferior lateral, basal anterior septal and basal inferior lateral galloway were hypokinetic. Findings: Study Quality * Technically adequate exam. ECG Findings * Normal sinus rhythm. Left Ventricle * LVEF 20%. * Mildly dilated left ventricle. * Indeterminate diastolic function. Right Ventricle * Normal right ventricular structure and function. Left Atrium * Normal left atrial size. Right Atrium * Normal right atrial size. Aortic Valve * Aortic valve not well visualized. * Mildly sclerotic aortic valve leaflets. * No aortic stenosis. * Mild aortic regurgitation. Mitral Valve * No mitral stenosis. * Mild mitral regurgitation. * Mildly thickened mitral valve leaflets. Tricuspid Valve * Tricuspid valve not well visualized. * Trace tricuspid regurgitation. * Estimated RA pressure is 3 mmHg. Pulmonic Valve * Pulmonic valve is not well visualized. * No pulmonic stenosis. * No pulmonic regurgitation. Pulmonary Artery * Pulmonary artery not well visualized. Aorta * Not well visualized. Pericardium * There is no pericardial effusion present. Pleural Effusion * Pleural effusion is present. Interatrial Septum * Interatrial septum not well evaluated. IVC * Normal IVC dimensions and inspiratory collapse. - Attending Attestation I examined this patient and my medical decision-making was reviewed with the Resident Physician Dr. Tao. I agree with the documented findings, disposition and treatment plan as described except to the extent set forth below. This is 77 y/o F admitted with Acute COPD exacerbation and pneumonia. She is currently on 3 lit O2. Feeling little better today. She is alert, awake and O x3. Denied any CP. Gen: A, A< O x 3 Chest: Diminished BS b/l basal region, moderate wheezing heart : S1 S2 + a/p 1. Sepsis with Pneumonia 2. Acute on chronic Hypoxic resp fialure 3. Acute COPD exacerbation mostly bacterial cont empirical abx Levaquin and Zosyn
[2017-12-05] MEDS: Nicotine 21 MG PATCH.TD24 TD SCH (08:45)
[2017-12-05] MEDS: ALPRAZolam 0.5 MG TABLET PO PRN ×3 (08:46→23:52)
[2017-12-05] MEDS: Furosemide 20 MG/2 ML VIAL IVP SCH (08:46)
[2017-12-05] MEDS: Aspirin Enteric Coated 325 MG Tablet PO SCH (08:46)
[2017-12-05] MEDS: Metoprolol XL (24 HR) Succ 25 MG TAB.ER.24H PO SCH (09:54)
[2017-12-05] MEDS ORDERED: Levofloxacin 500 MG/100 ML 500 MG/100 ML BAG IVPB SCH (10:00)
--- NOTE | 2017-12-05 20:11 | Electrocardiograph Report ---
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
[2017-12-05] MEDS: Famotidine 20 MG TABLET PO SCH (21:33)
[2017-12-06] MEDS: Ipratropium/Albuterol Neb 3 ML IH SCH ×6 (00:12→20:20)
[2017-12-06] MEDS: Acetaminophen 325 MG TABLET PO PRN ×2 (00:39→23:23)
[2017-12-06] MEDS: Piperacillin/Tazobactam 3.375 GM/200 ML BAG IVPB SCH ×3 (02:26→17:12)
[2017-12-06] MEDS: *HR* Heparin 5,000 UNIT/ML VIAL SQ SCH ×3 (06:29→23:24)
[2017-12-06 07:42] LABS: Alanine Aminotransferase 26 Units/L (7-52); Albumin 2.2 g/dL (3.5-5.7); Albumin/Globulin Ratio 0.7 (1.1-2.2); Alkaline Phosphatase 65 Units/L (34-104); Aspartate Amino Transferase 27 Units/L (13-39); BUN/Creatinine Ratio 16 (6-26); Bilirubin,Total 0.4 mg/dL (0.3-1.0); Blood Urea Nitrogen 13 mg/dL (8-23); Calcium 8.2 mg/dL (8.6-10.3); Carbon Dioxide 37 mEq/L (23-29); Chloride 103 mEq/L (98-107); Globulin 3.2 g/dL (2.4-3.5); Potassium 3.7 mEq/L (3.5-5.1); Sodium 143 mEq/L (136-145); Total Protein 5.4 g/dL (6.4-8.9); eGFR For African Americans > 60 (> 60); eGFR For Non-African Americans > 60 (> 60)
[2017-12-06 08:16] LABS: Basophils # 0.1 K/mcL (0.0-0.2); Basophils % 0.4 %; Eosinophils # 0.1 K/mcL (0.0-0.6); Eosinophils % 0.5 %; Hematocrit 31.9 % (35.3-44.9); Hemoglobin 9.7 g/dL (11.5-15.4); Immature Granulocytes % 0.6 % (0-4); Immature Platelets 2.3 % (1.1-6.1); Lymphocytes # 2.5 K/mcL (0.6-4.6); Mean Corpuscular HGB Conc 30.4 g/dL (31.6-35.5); Mean Corpuscular Hemoglobin 25.5 pg (28.0-33.3); Mean Corpuscular Volume 83.9 fL (83.0-100.0); Mean Platelet Volume 9.8 fL (9.4-12.4); Monocytes # 0.9 K/mcL (0.0-1.3); Monocytes % 7.5 %; Neutrophils # 8.3 K/mcL (1.6-8.9); Platelet Count 341 K/mcL (140-400)
[2017-12-06 08:33] LABS: Glucose 72 mg/dL (70-105); Osmolality,Calculated 295 (280-300)
[2017-12-06 09:22] LABS: Platelet Estimate Normal (Normal); Target Cells 1+ (Not Present)
[2017-12-06 09:23] LABS: Anisocytosis 1+ (Not Present); Burr Cells 1+ (Not Present); Hypochromasia Present (Not Present); Poikilocytosis 1+ (Not Present)
[2017-12-06 09:24] LABS: Acanthocytes 1+ (Not Present); Microcytosis Present (Not Present); Ovalocytes 1+ (Not Present)
[2017-12-06] MEDS: Metoprolol XL (24 HR) Succ 25 MG TAB.ER.24H PO SCH (09:40)
[2017-12-06] MEDS: Spironolactone 25 MG TABLET PO SCH (09:40)
[2017-12-06] MEDS: Aspirin Enteric Coated 325 MG Tablet PO SCH (09:40)
[2017-12-06] MEDS: Nicotine 21 MG PATCH.TD24 TD SCH (09:41)
--- NOTE | 2017-12-06 10:46 | Internal Med Progress Note ---
<Curt Tao - Last Filed: 12/06/17 13:17> Date of Encounter: 12/06/17 Time of Encounter: 10:42 - Assessment and plan (1) Sepsis Current Visit: Yes Status: Acute Assessment and plan: Secondary to pneumonia as seen on CXR, and she was recently hospitalized in [place] She has received 4 days of Zosyn, Levaquin; Vanc stopped after 3 days Blood cultures remain negative Her white count decreased slightly to 11.9 and she was afebrile and non- tachycardic overnight Qualifiers: Sepsis type: sepsis due to unspecified organism Qualified Code(s): A41.9 - Sepsis, unspecified organism (2) Acute exacerbation of chronic obstructive airways disease Current Visit: Yes Status: Acute Assessment and plan: Secondary to pneumonia in setting of COPD Saturating well at 97% on 3 L, unsure of baseline oxygen demands (3) Bilateral pneumonia Current Visit: Yes Status: Acute Assessment and plan: Possible aspiration as patient has baseline dementia Will obtain speech consult for formal swallow evaluation Continue on Levaquin and Zosyn day 5, Vanc stopped after 3 days Blood cultures remain negative Respiratory infection panel pending Qualifiers: Qualified Code(s): J18.9 - Pneumonia, unspecified organism (4) Altered mental status Current Visit: Yes Status: Chronic Assessment and plan: Unclear how far she is from her baseline, but she does have improved mental status this morning compared to yesterday Tried contacting Ervin, emergency contact on the chart, but could not get through She has complicated social case, will await mental health social worker recommendations; she may go home with hospice Qualifiers: Altered mental status type: disorientation Qualified Code(s): R41.0 - Disorientation, unspecified (5) Acute systolic CHF (congestive heart failure) Current Visit: Yes Status: Acute Assessment and plan: Echo in March revealed EF 25% and repeat endocardiogram 12/05/17 showed EF of 20% Resume her home Aldactone and Metoprolol (6) Dementia Current Visit: Yes Status: Acute Assessment and plan: Unclear how far she is from her baseline mental status as there is no family at bedside She was previously enrolled in [facility], but was discharged due to violation of plan of care Social work working on placement Qualifiers: Qualified Code(s): F03.90 - Unspecified dementia without behavioral disturbance (7) DVT prophylaxis Current Visit: Yes Status: Acute Assessment and plan: Heparin SQ - Subjective Interval history: Pt seen and examined. She is awake this morning and is stating she has nasal stuffiness but otherwise has no issues breathing currently nor chest pain. She has no nausea, vomiting, diarrhea, or fevers. - Constitutional Vitals: Temp Pulse Resp BP Pulse Ox 97.4 F L 97 16 130/85 98 12/06/17 07:30 12/06/17 07:30 12/06/17 07:30 12/06/17 07:30 12/06/17 07:30 General appearance: Present: cooperative, A&O X 2 (does not know year), no acute distress. Absent: answers questions appropriately - Head Head exam: Present: atraumatic, normocephalic - Eye Eye exam: Present: PERRL, conjuntiva pink, sclera anicteric - Neck Neck exam general surgery: Present: supple, trachea midline. Absent: lymphadenopathy - Respiratory Respiratory exam: Present: rales (bilaterally). Absent: accessory muscle use, rhonchi, wheezes - Cardiovascular Cardiovascular exam: Present: RRR, +S1, +S2. Absent: diastolic murmur, gallop, rubs, systolic murmur - GI/Abdominal GI/Abdominal exam: Present: normal bowel sounds, soft, no peritoneal signs. Absent: distended, tenderness - Extremities Exam Extremities exam: Present: pedal edema, warm, radial pulses palpable and symmetrical. Absent: calf tenderness, cyanotic - Neurological Exam Neurological exam: Present: alert, no focal deficits. Absent: oriented X3, pronater drift, facial droop, speech deficit - Skin Skin exam: Present: dry, intact Internal Medicine: Result - Labs CBC & Chem 7: 12/06/17 06:39 12/06/17 06:39 Labs: Short CBC 12/06/17 Range/Units 06:39 WBC 11.9 H (4.3-11.1) K/mcL Hgb 9.7 L (11.5-15.4) g/dL Hct 31.9 L (35.3-44.9) % Plt Count 341 (140-400) K/mcL Neutrophils # 8.3 (1.6-8.9) K/mcL BMP 12/06/17 06:39 Sodium 143 Potassium 3.7 Chloride 103 Carbon Dioxide 37 H BUN 13 Creatinine 0.81 Glucose 72 Calcium 8.2 L Liver Function 12/06/17 Range/Units 06:39 Total Bilirubin 0.4 (0.3-1.0) mg/dL AST 27 (13-39) Units/L ALT 26 (7-52) Units/L Alkaline Phosphatase 65 (34-104) Units/L Albumin 2.2 L (3.5-5.7) g/dL - ABG Interpretation ABG results: PT/INR, D-dimer PT 12.4 Seconds (9.4-12.1) H 12/02/17 03:29 - Impressions Impressions Echocardiogram 12/05/17 09:03 Impressions: LVEF 20%. Mildly dilated left ventricle. Indeterminate diastolic function. Normal right ventricular structure and function. Mild aortic regurgitation. Mild mitral regurgitation. No pulmonary hypertension. A pleural effusion is present. Left Ventricular Wall Motion: Rest Echo Findings The apex, apical inferior, mid inferior, basal inferior, apical anterior, mid anterior, basal anterior, apical septal, mid inferior septal, basal inferior septal, apical lateral, mid anterior lateral, basal anterior lateral, mid anterior septal, mid inferior lateral, basal anterior septal and basal inferior lateral galloway were hypokinetic. Findings: Study Quality * Technically adequate exam. ECG Findings * Normal sinus rhythm. Left Ventricle * LVEF 20%. * Mildly dilated left ventricle. * Indeterminate diastolic function. Right Ventricle * Normal right ventricular structure and function. Left Atrium * Normal left atrial size. Right Atrium * Normal right atrial size. Aortic Valve * Aortic valve not well visualized. * Mildly sclerotic aortic valve leaflets. * No aortic stenosis. * Mild aortic regurgitation. Mitral Valve * No mitral stenosis. * Mild mitral regurgitation. * Mildly thickened mitral valve leaflets. Tricuspid Valve * Tricuspid valve not well visualized. * Trace tricuspid regurgitation. * Estimated RA pressure is 3 mmHg. Pulmonic Valve * Pulmonic valve is not well visualized. * No pulmonic stenosis. * No pulmonic regurgitation. Pulmonary Artery * Pulmonary artery not well visualized. Aorta * Not well visualized. Pericardium * There is no pericardial effusion present. Pleural Effusion * Pleural effusion is present. Interatrial Septum * Interatrial septum not well evaluated. IVC * Normal IVC dimensions and inspiratory collapse. - VTE Documentation of Mechanical Device: Intermittent pneumatic compression device Consult Discharge Plan - Plan Referrals: Dmitriy Alfonso MD [Primary Care Provider] - 12/14/17 2:15 pm (SENT WEB REQUEST ON 12-05-17 @ 0408) <Ariella Barnes - Last Filed: 12/06/17 15:24> Date of Encounter: 12/06/17 - Constitutional Vitals: Temp Pulse Resp BP Pulse Ox 97.6 F 97 16 143/98 97 12/06/17 10:45 12/06/17 10:45 12/06/17 10:45 12/06/17 10:45 12/06/17 10:45 Internal Medicine: Result - Labs CBC & Chem 7: 12/06/17 06:39 12/06/17 06:39 Labs: Short CBC 12/06/17 Range/Units 06:39 WBC 11.9 H (4.3-11.1) K/mcL Hgb 9.7 L (11.5-15.4) g/dL Hct 31.9 L (35.3-44.9) % Plt Count 341 (140-400) K/mcL Neutrophils # 8.3 (1.6-8.9) K/mcL BMP 12/06/17 06:39 Sodium 143 Potassium 3.7 Chloride 103 Carbon Dioxide 37 H BUN 13 Creatinine 0.81 Glucose 72 Calcium 8.2 L Liver Function 12/06/17 Range/Units 06:39 Total Bilirubin 0.4 (0.3-1.0) mg/dL AST 27 (13-39) Units/L ALT 26 (7-52) Units/L Alkaline Phosphatase 65 (34-104) Units/L Albumin 2.2 L (3.5-5.7) g/dL - ABG Interpretation ABG results: PT/INR, D-dimer PT 12.4 Seconds (9.4-12.1) H 12/02/17 03:29 - Impressions Impressions Echocardiogram 12/05/17 09:03 Impressions: LVEF 20%. Mildly dilated left ventricle. Indeterminate diastolic function. Normal right ventricular structure and function. Mild aortic regurgitation. Mild mitral regurgitation. No pulmonary hypertension. A pleural effusion is present. Left Ventricular Wall Motion: Rest Echo Findings The apex, apical inferior, mid inferior, basal inferior, apical anterior, mid anterior, basal anterior, apical septal, mid inferior septal, basal inferior septal, apical lateral, mid anterior lateral, basal anterior lateral, mid anterior septal, mid inferior lateral, basal anterior septal and basal inferior lateral galloway were hypokinetic. Findings: Study Quality * Technically adequate exam. ECG Findings * Normal sinus rhythm. Left Ventricle * LVEF 20%. * Mildly dilated left ventricle. * Indeterminate diastolic function. Right Ventricle * Normal right ventricular structure and function. Left Atrium * Normal left atrial size. Right Atrium * Normal right atrial size. Aortic Valve * Aortic valve not well visualized. * Mildly sclerotic aortic valve leaflets. * No aortic stenosis. * Mild aortic regurgitation. Mitral Valve * No mitral stenosis. * Mild mitral regurgitation. * Mildly thickened mitral valve leaflets. Tricuspid Valve * Tricuspid valve not well visualized. * Trace tricuspid regurgitation. * Estimated RA pressure is 3 mmHg. Pulmonic Valve * Pulmonic valve is not well visualized. * No pulmonic stenosis. * No pulmonic regurgitation. Pulmonary Artery * Pulmonary artery not well visualized. Aorta * Not well visualized. Pericardium * There is no pericardial effusion present. Pleural Effusion * Pleural effusion is present. Interatrial Septum * Interatrial septum not well evaluated. IVC * Normal IVC dimensions and inspiratory collapse. - Attending Attestation I examined this patient and my medical decision-making was reviewed with the Resident Physician Dr. Tao. I agree with the documented findings, disposition and treatment plan as described except to the extent set forth below. This is 77 y/o F admitted with Acute COPD exacerbation and pneumonia. She is currently on 3 lit O2. Feeling little better today. She is alert, awake and O x3. Denied any CP. Gen: A, A< O x 3 Chest: Diminished BS b/l basal region, moderate wheezing heart : S1 S2 + a/p 1. Sepsis with Pneumonia 2. Acute on chronic Hypoxic resp fialure 3. Acute COPD exacerbation mostly bacterial Improving cont empirical abx Levaquin and Zosyn 4. Acute on Chronic systolic CHF exacerbation She might be in mild CHF exacerbation Will resume home diuretics now will use Lasix PRN
[2017-12-06] MEDS: Levofloxacin 750 MG/150 ML 750 MG/150 ML BAG IVPB SCH (11:10)
[2017-12-06] MEDS: ALPRAZolam 0.5 MG TABLET PO PRN ×2 (15:17→23:23)
[2017-12-06] MEDS ORDERED: levoFLOXacin 750 MG TABLET PO SCH (17:30)
[2017-12-06] MEDS: Famotidine 20 MG TABLET PO SCH (23:23)
[2017-12-07] MEDS: Ipratropium/Albuterol Neb 3 ML IH SCH ×7 (00:14→23:34)
[2017-12-07] MEDS: *HR* Heparin 5,000 UNIT/ML VIAL SQ SCH ×3 (05:53→20:36)
--- NOTE | 2017-12-07 08:04 | Internal Med Progress Note ---
<Curt Tao - Last Filed: 12/08/17 10:09> Date of Encounter: 12/08/17 Time of Encounter: 08:51 - Assessment and plan (1) Sepsis Status: Acute Assessment and plan: Secondary to pneumonia as seen on CXR, and she was recently hospitalized in [place] She has received 5 days of Zosyn, Levaquin; Vanc stopped after 3 days Blood cultures remain negative Will be going home on 3 more doses of Levaquin PO She was medically stable for discharge yesterday but social work was working on insurance approval for [facility] Qualifiers: Sepsis type: sepsis due to unspecified organism Qualified Code(s): A41.9 - Sepsis, unspecified organism (2) Acute exacerbation of chronic obstructive airways disease Status: Acute Assessment and plan: Secondary to pneumonia in setting of COPD Saturating well at 97% on 3 L, unsure of baseline oxygen demands She does not require BiPAP as she would be poor candidate given her dementia and she did not qualify for it (3) Bilateral pneumonia Status: Acute Assessment and plan: Possible aspiration as patient has baseline dementia Will obtain speech consult for formal swallow evaluation Received Levaquin and Zosyn for 5 days, Vanc stopped after 3 days Blood cultures remain negative Qualifiers: Qualified Code(s): J18.9 - Pneumonia, unspecified organism (4) Altered mental status Status: Chronic Assessment and plan: Unclear how far she is from her baseline, but she was awake and answering questions Could not get into contact with family or significant other She will be discharged to [facility] bed Qualifiers: Altered mental status type: disorientation Qualified Code(s): R41.0 - Disorientation, unspecified (5) Acute systolic CHF (congestive heart failure) Status: Resolved Assessment and plan: Echo in March revealed EF 25% and repeat endocardiogram 12/05/17 showed EF of 20% Resume her home Aldactone and Metoprolol (6) Dementia Status: Chronic Assessment and plan: Unclear how far she is from her baseline mental status as there is no family at bedside She was previously enrolled in [facility], but was discharged due to violation of plan of care Social work awaiting insurance approval for placement Qualifiers: Qualified Code(s): F03.90 - Unspecified dementia without behavioral disturbance (7) DVT prophylaxis Status: Acute Assessment and plan: Heparin SQ - Subjective Interval history: Pt seen and examined. She is asleep after being awake most of the night but does respond to her name. She states her breathing is fine and has no complaints of pain at the time. Per RN she has not required a sitter. - Constitutional Vitals: Temp Pulse Resp BP Pulse Ox 97.9 F 92 14 114/70 95 12/07/17 05:56 12/07/17 05:56 12/07/17 05:56 12/07/17 05:56 12/07/17 05:56 General appearance: Present: cachectic, cooperative, no acute distress. Absent : answers questions appropriately Exam: somnolent - Head Head exam: Present: atraumatic, normocephalic - Eye Eye exam: Present: conjuntiva pink, sclera anicteric - Neck Neck exam general surgery: Present: supple, trachea midline. Absent: lymphadenopathy - Respiratory Respiratory exam: Present: rales. Absent: accessory muscle use, rhonchi, wheezes - Cardiovascular Cardiovascular exam: Present: RRR, +S1, +S2. Absent: diastolic murmur, gallop, rubs, systolic murmur - GI/Abdominal GI/Abdominal exam: Present: normal bowel sounds, soft, no peritoneal signs. Absent: distended, tenderness - Extremities Exam Extremities exam: Present: warm, radial pulses palpable and symmetrical. Absent : calf tenderness, cyanotic, pedal edema - Neurological Exam Neurological exam: Present: alert, no focal deficits. Absent: facial droop, speech deficit - Skin Skin exam: Present: dry, intact Internal Medicine: Result - Labs CBC & Chem 7: 12/06/17 06:39 12/06/17 06:39 Labs: Short CBC 12/06/17 Range/Units 06:39 WBC 11.9 H (4.3-11.1) K/mcL Hgb 9.7 L (11.5-15.4) g/dL Hct 31.9 L (35.3-44.9) % Plt Count 341 (140-400) K/mcL Neutrophils # 8.3 (1.6-8.9) K/mcL BMP 12/06/17 06:39 Glucose 72 - ABG Interpretation ABG results: PT/INR, D-dimer PT 12.4 Seconds (9.4-12.1) H 12/02/17 03:29 - VTE Documentation of Mechanical Device: Intermittent pneumatic compression device Consult Discharge Plan - Plan Additional Instructions: Please follow up with your PCP within 1 week of discharge. Referrals: Dmitriy Alfonso MD [Primary Care Provider] - 12/14/17 2:15 pm (SENT WEB REQUEST ON 12-05-17 @ [id number]) Prescriptions: ALPRAZolam [Xanax 0.5 MG Tablet] 0.5 mg PO Q4H PRN #20 tablet PRN Reason: Anxiety HYDROcodone/Acet 5/325 mg [[place] 5-325 mg] 1 tab PO Q4H PRN #20 tablet PRN Reason: Pain levoFLOXacin [Levaquin] 750 mg PO Q48H #3 tablet <Ariella Barnes - Last Filed: 12/08/17 12:14> Date of Encounter: 12/08/17 - Constitutional Vitals: Temp Pulse Resp BP Pulse Ox 98.2 F 101 18 120/68 92 12/08/17 10:48 12/08/17 10:48 12/08/17 11:05 12/08/17 10:48 12/08/17 11:05 Internal Medicine: Result - Labs CBC & Chem 7: 12/06/17 06:39 12/06/17 06:39 - ABG Interpretation ABG results: ABG ABG pH 7.44 pH Units (7.32-7.45) 12/06/17 12:41 ABG pCO2 52 mmHg (35-45) H 12/06/17 12:41 ABG pO2 39 mmHg (85-104) L* 12/06/17 12:41 ABG O2 Saturation 74 % (95-98) L 12/06/17 12:41 PT/INR, D-dimer PT 12.4 Seconds (9.4-12.1) H 12/02/17 03:29 - Attending Attestation I examined this patient and my medical decision-making was reviewed with the Resident Physician Dr. Tao. I agree with the documented findings, disposition and treatment plan as described except to the extent set forth below. This is 77 y/o F admitted with Acute COPD exacerbation and pneumonia. She is currently on 3 lit O2. Feeling little better today. She is alert, awake and O to self. Denied any CP. Gen: A, A, O x to self Chest: Diminished BS b/l basal region, moderate wheezing heart : S1 S2 + a/p 1. Sepsis with Pneumonia 2. Acute on chronic Hypoxic resp fialure 3. Acute COPD exacerbation mostly bacterial Improved switched to PO abx 4. Acute on Chronic systolic CHF exacerbation She might be in mild CHF exacerbation stable with home diuretics Medially stable to d/c to ECF She did not leave last night since her insurance authorization has not approved.. She can d/c to ECF whenever her insurance get approved.
[2017-12-07 09:06] LABS: ABG Base Excess 9 mEq/L (-2 to 3); ABG HCO3 35 mEq/L (21-27); ABG Oxygen Saturation 74 % (95-98); ABG PCO2 52 mmHg (35-45); ABG PH 7.44 pH Units (7.32-7.45); ABG PO2 39 mmHg (85-104); ABG TCO2 36 mEq/L (20-26)
[2017-12-07] MEDS: Nicotine 21 MG PATCH.TD24 TD SCH (09:15)
[2017-12-07] MEDS: Aspirin Enteric Coated 325 MG Tablet PO SCH (09:15)
[2017-12-07] MEDS: Metoprolol XL (24 HR) Succ 25 MG TAB.ER.24H PO SCH (09:15)
[2017-12-07] MEDS: Spironolactone 25 MG TABLET PO SCH (09:15)
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
--- NOTE | 2017-12-07 13:33 | Physician Discharge Referral ---
ExtendedCare Referral Info Transfer To: [facility] Provider in Charge: Dr. Bull Provider in Charge after Transfer: PCP Institutional Level of Care: Skilled - Diagnosis (1) Sepsis Priority: Primary Status: Acute (2) Acute exacerbation of chronic obstructive airways disease Priority: Secondary Status: Acute (3) Bilateral pneumonia Priority: Secondary Status: Acute (4) Altered mental status Priority: Secondary Status: Chronic (5) Acute systolic CHF (congestive heart failure) Priority: Secondary Status: Resolved (6) Dementia Priority: Secondary Status: Chronic Prognosis: Fair Aware of Diagnosis: Patient Aware of Prognosis: Patient - Transfer Medications Prescriptions: ALPRAZolam [Xanax 0.5 MG Tablet] 0.5 mg PO Q4H PRN #20 tablet PRN Reason: Anxiety HYDROcodone/Acet 5/325 mg [[place] 5-325 mg] 1 tab PO Q4H PRN #20 tablet PRN Reason: Pain levoFLOXacin [Levaquin] 750 mg PO Q48H #3 tablet Home Medications: Alprazolam [Alprazolam Xr] 0.5 mg PO Q4H PRN 12/01/17 [History] Aspirin/Calcium Carbonate/Mag [Aspirin Buffered 325 mg Tab] 325 mg PO DAILY 04/13 [History] Metoprolol XL (24 HR) Succ [Toprol Xl] 25 mg PO DAILY 12/01/17 [History] Ranitidine HCl [Heartburn Relief] 150 mg PO HS 12/01/17 [History] Sennosides/Docusate Sodium [Senna-Docusate Sodium Tablet] 1 tab PO DAILY PRN 04/13 [History] Spironolactone [Aldactone] 25 mg PO DAILY 12/01/17 [History] ALPRAZolam [Xanax 0.5 MG Tablet] 0.5 mg PO Q4H PRN #20 tablet 12/07/17 [Rx] HYDROcodone/Acet 5/325 mg [[place] 5-325 mg] 1 tab PO Q4H PRN #20 tablet 12/07/17 [Rx] levoFLOXacin [Levaquin] 750 mg PO Q48H #3 tablet 12/07/17 [Rx] Allergies/Adverse Reactions: 3 Allergy/AdvReac Type Severity Reaction Status Date / Time Sulfa (Sulfonamide Allergy Rash Verified 12/01/17 09:10 Antibiotics) - Respiratory Orders Oxygen / L per min Smoking Cessation: Smoking cessation has been advised. For more information, call the [place] Tobacco Quit Line at 0-999-OZGL-NOW. - Ancillary Orders May use pressure relief devices daily prn, May go on CLEMENTE w/family/respon green party w /meds at nurse discretion PRN, May consult with Dentist, Preparer [employer] Rep[employer], Hosiery Mater PRN - Advance Directives Code Status: Full Code - Mobility Orders Chair - Rehabiliation Orders Rehab Potential: Fair Rehab Orders: Sternal Precautions, ROM Exercises, Evaluation for Physical Therapy, Evaluation for Occupational Therapy - Treatments Skin tear care topically daily PRN per policy, May check for fecal impaction rectally daily PRN, Fleet enema rectally every other day PRN cleansing purposes - Diet Orders Cardiac CERTIFICATION: I certify that the transfer of the above named patient to an Extended Care Facility is necessary for the continuing treatment of the diagnosis listed. The above information is true and accurate reflection of patient's current condition. Confidential - Redisclosure prohibited without a patient's written consent.
[2017-12-07] MEDS: ALPRAZolam 0.5 MG TABLET PO PRN (20:34)
[2017-12-07] MEDS: Famotidine 20 MG TABLET PO SCH (20:34)
[2017-12-08] MEDS: ALPRAZolam 0.5 MG TABLET PO PRN (02:55)
[2017-12-08] MEDS: Ipratropium/Albuterol Neb 3 ML IH SCH ×3 (04:23→11:04)
[2017-12-08] MEDS: *HR* Heparin 5,000 UNIT/ML VIAL SQ SCH (05:44)
[2017-12-08] MEDS: Spironolactone 25 MG TABLET PO SCH (09:20)
[2017-12-08] MEDS: Metoprolol XL (24 HR) Succ 25 MG TAB.ER.24H PO SCH (09:20)
[2017-12-08] MEDS: Aspirin Enteric Coated 325 MG Tablet PO SCH (09:20)
[2017-12-08] MEDS: Nicotine 21 MG PATCH.TD24 TD SCH (09:35)
[2017-12-08 10:55] VITALS: BP 120/68
== END 2017-12-08 11:44 | disposition other institution (70) | DRG 871 ==
LOC: EMEROO 07:20 → 2NNU 07:20 → SUATTDRO 13:52 → 2ANU 12-05 11:13
PROVIDERS: ADMIT Internal Medicine; ATTEND Family Medicine